=== PATIENT | female | born 1945 | race Caucasian/White ===

== ENCOUNTER → 2019-06-02 15:25 | Outpatient (CLI) | payer MEDICARE, OTHER, SELFPAY ==
--- NOTE | 2019-06-02 | DI.MG.S_ITS ---
BILATERAL DIGITAL SCREENING MAMMOGRAM 3D/2D WITH CAD: 06/02/2019 Comparison is made to exams dated: 05/07/2017 mammogram, 09/06/2014 mammogram, and 08/31/2012 mammogram - [facility]. The tissue of both breasts is heterogeneously dense. This may lower the sensitivity of mammography. Current study was also evaluated with a Computer Aided Detection (CAD) system. There are benign calcifications in both breasts. No significant masses, calcifications, or other findings are seen in either breast. There has been no significant interval change. IMPRESSION: There is no mammographic evidence of malignancy. A 1 year screening mammogram is recommended. This exam was interpreted at Station ID: [id number]. NOTE: For mammograms, a report in lay terms will be sent to the patient. Approximately 15% of breast malignancies will not be visualized mammographically. In the management of a palpable breast mass, a negative mammogram must not discourage biopsy of a clinically suspicious lesion. Electronically Signed By: Anson rivera/deshawn:06/02/2019 16:28:15 letter sent: Normal Exam ACR BI-RADS Category 2: Benign Finding(s) 3342F
== END ==
PROVIDERS: PCP Family Medicine; Visit Provider Family Medicine
DX: Z12.31 Encounter for screening mammogram for malignant neoplasm of breast (principal)
CPT/HCPCS: 77063; 77067

== ENCOUNTER → 2021-05-11 15:35 | Outpatient (CLI) | payer MEDICARE, OTHER, SELFPAY ==
--- NOTE | 2021-05-11 | DI.MG.S_ITS ---
BILATERAL DIGITAL SCREENING MAMMOGRAM 3D/2D WITH CAD: 05/11/2021 CLINICAL: Routine screening. Comparison is made to exams dated: 06/02/2019 mammogram, 05/07/2017 mammogram, 09/06/2014 mammogram, and 08/31/2012 mammogram - [facility]. The tissue of both breasts is heterogeneously dense. This may lower the sensitivity of mammography. Current study was also evaluated with a Computer Aided Detection (CAD) system. There are benign calcifications in both breasts. No significant masses, calcifications, or other findings are seen in either breast. There has been no significant interval change. IMPRESSION: BENIGN There is no mammographic evidence of malignancy. A 1 year screening mammogram is recommended. This exam was interpreted at Station ID: [id number]. NOTE: For mammograms, a report in lay terms will be sent to the patient. Approximately 15% of breast malignancies will not be visualized mammographically. In the management of a palpable breast mass, a negative mammogram must not discourage biopsy of a clinically suspicious lesion. Electronically Signed By: Paulie hollins/deshawn:05/13/2021 09:45:44 letter sent: Normal Exam ACR BI-RADS Category 2: Benign Finding(s) 3342F
== END ==
PROVIDERS: PCP Family Medicine; Referring Provider Family Medicine; Visit Provider Family Medicine
DX: Z12.31 Encounter for screening mammogram for malignant neoplasm of breast (principal)
CPT/HCPCS: 77063; 77067

== ENCOUNTER → 2023-02-02 | Outpatient (CLI) | payer MEDICARE, OTHER, SELFPAY ==
--- NOTE | 2023-02-02 | DI.RAD.S_ITS ---
Bone Density Report Name: LISA MCKEON Age: 77 Sex: Female Ethnicity: White Date of : 1945 Indication: postmenopausal; screening for osteoporosis; Referring Provider: RAVI GARRIDO Study: Bone densitometry was performed. Exam Date: February 02, 2023 Accession number: [id number] Bone Density: Region BMD T-score Z-score Classification AP Spine(L2, L3, L4) 1.139 0.5 3.2 Normal Femoral Neck (Left) 0.775 -0.7 1.5 Normal Total Hip (Left) 0.917 -0.2 1.7 Normal Femoral Neck (Right) 0.759 -0.8 1.4 Normal Total Hip (Right) 0.882 -0.5 1.4 Normal Total Hip Mean 0.899 -0.4 1.6 Normal World Health Organization criteria for BMD impression classify patients as: Normal (T-score at or above -1.0), Osteopenia (T-score between -1.0 and -2.5), or Osteoporosis (T-score at or below -2.5). 10-year Fracture Risk: FRAX not reported because: All T-scores for Spine Total, Hip Total, Femoral Neck at or above -1.0 Impression: The patient has normal bone mass. Discussion: BONE DENSITY IS ABOVE THE MINIMUM DESIRABLE LEVEL AT ALL SKELETAL SITES TESTED. This patient's bone mineral density is above the minimum desirable level (T-score -1.0 or better) at all sites measured. The patient should follow a healthful lifestyle (good nutrition with adequate calcium and vitamin D, and appropriate weight-bearing exercise). Follow-Up: Consider repeating this study in 5 years or sooner if there is some new clinical indication. Reported by: FERNANDO DIEGO M.D. on 02/02/2023 12:06:00 PM.
== END ==
PROVIDERS: PCP Family Medicine; Referring Provider Family Medicine; Visit Provider Family Medicine
DX: Z78.0 Asymptomatic menopausal state (principal); Z13.820 Encounter for screening for osteoporosis
CPT/HCPCS: 77080

== ENCOUNTER → 2023-02-11 09:42 | Outpatient (CLI) | payer MEDICARE, OTHER, SELFPAY ==
--- NOTE | 2023-02-13 02:15 | DI.NM.S_ITS ---
DATE OF SERVICE: 02/11/2023 PROCEDURE PERFORMED: Exercise treadmill stress and rest myocardial perfusion imaging with gating to assess ejection fraction and regional wall motion. ORDERING PROVIDER: Conner Whitaker MD. INDICATIONS: The patient is a 77-year-old female with atypical chest pain. CARDIAC STRESS: The patient was able to exercise for 5 minutes 12 seconds on a standard Latrell protocol suggesting average exercise capacity with an DAVIDE of -2%, achieving 5.3 METs. She had a normal heart rate and blood pressure response to exercise, achieving a maximum heart rate of 149 BPM (104% of her predicted maximum). She had no chest discomfort or other anginal symptoms. Her resting ECG is normal and there are no significant ST-segment shifts with stress. There were no arrhythmias. At 3 minutes, 20 seconds of exercise at a heart rate of 137 BPM, 25.1 millicuries of technetium-99m Myoview was injected and she was imaged 20 minutes later using a gated SPECT acquisition protocol. The day prior, she had been injected with 25.5 millicuries of technetium-99m Myoview and was imaged 15 minutes later, again using a gated SPECT acquisition protocol. FINDINGS: 1. Raw data: There is fair myocardial tracer uptake although with some subdiaphragmatic tracer activity noted on both the stress and the resting images, more so on the latter, which does complicate the interpretation. The lung/heart ratio is normal at 0.19 with a normal TID ratio of 0.91. 2. Quantitated gated SPECT: Post-stress ejection fraction is estimated at 74% without any focal wall motion abnormality; specifically, the inferior wall has normal contractility. The resting ejection fraction is also 74% with a normal resting end-diastolic volume of 86 mL. The right ventricular free wall appears to have mildly increased tracer uptake and appears mildly enlarged which can be a sign of early right ventricular overload condition but clinical correlation is needed. 3. Myocardial perfusion imaging: Post-stress supine images shows a fairly normal myocardial perfusion pattern although with a slight defect in the proximal to mid inferior wall in a pattern consistent with diaphragmatic attenuation, supported by its complete resolution on the prone images, revealing a normal, homogeneous perfusion pattern. The resting images are somewhat compromised by the subdiaphragmatic tracer activity but appears unchanged from the post-stress supine images without any improvement in the inferior defect. IMPRESSION: 1. Probable normal myocardial perfusion study for ischemia. 2. Mild, fixed inferior perfusion defect that most likely reflects diaphragmatic attenuation given its resolution on the prone images. There is no evidence for any myocardial ischemia. 3. Normal left ventricular size and function without any focal wall motion abnormality. The right ventricular free wall appears to have increased tracer uptake and appears mildly enlarged, which can be a sign of a right ventricular overload condition but clinical correlation is recommended. 4. Average exercise capacity without angina or ECG evidence of ischemia. There were no arrhythmias. Fady Nevarez - YUNIOR/jules/bk doc#: [id number]/job#: [id number] dd: 02/12/2023 17:18:00 dt: 02/13/2023 02:08:00 DICTATING /COPIES TO: Conner Pabon MD COPIES MNE: URMILA;
== END ==
PROVIDERS: PCP Family Medicine; Referring Provider Family Medicine; Visit Provider Family Medicine
DX: R07.89 Other chest pain (principal)
CPT/HCPCS: 78452; 93017; A9502

== ENCOUNTER → 2023-06-18 15:31 | Outpatient (CLI) | payer MEDICARE, OTHER, SELFPAY ==
--- NOTE | 2023-06-18 15:33 | DI.MG.S_ITS ---
BILATERAL DIGITAL SCREENING MAMMOGRAM 3D/2D WITH CAD: 06/18/2023 CLINICAL: Routine screening. Comparison is made to exams dated: 05/11/2021 mammogram, 06/02/2019 mammogram, and 05/07/2017 mammogram - [facility]. Both breasts are heterogeneously dense, which may obscure small masses (category c / 51-75% glandular tissue). Current study was also evaluated with a Computer Aided Detection (CAD) system. There are benign calcifications in both breasts. No significant masses, calcifications, or other findings are seen in either breast. There has been no significant interval change. IMPRESSION: BENIGN There is no mammographic evidence of malignancy. A 1 year screening mammogram is recommended. Based on the Tyrer Cuzick model (a risk assessment model) the patient's lifetime risk is 3.5% and her 10 year risk is 0.0%. According to the ACR, ACS, and NCCN guidelines, an annual breast MRI exam along with mammogram is recommended if the patient's lifetime risk is 20% or greater. This exam was interpreted at Station ID: [id number]. NOTE: For mammograms, a report in lay terms will be sent to the patient. Approximately 15% of breast malignancies will not be visualized mammographically. In the management of a palpable breast mass, a negative mammogram must not discourage biopsy of a clinically suspicious lesion. Electronically Signed By: Ilir vidal/deshawn:06/19/2023 08:53:33 letter sent: Normal Exam ACR BI-RADS Category 2: Benign Finding(s) 3342F
== END ==
PROVIDERS: PCP Family Medicine; Referring Provider Family Medicine; Visit Provider Family Medicine
DX: Z12.31 Encounter for screening mammogram for malignant neoplasm of breast (principal)
CPT/HCPCS: 77063; 77067

== ENCOUNTER → 2025-03-16 07:29 | Outpatient (CLI) | payer MEDICARE, BC, SELFPAY ==
--- NOTE | 2025-03-16 | DI.RAD.S_ITS ---
PROCEDURE: XR KNEE RT 1TO2V INDICATIONS: PAIN TECHNIQUE: 2 views of the knee were acquired. COMPARISON: [facility], , XR KNEE STANDING BI, 03/16/2025, 7:54. FINDINGS: Bones: Lateral and patellar sunrise views are viewed in conjunction with and AP standing view. No fractures or dislocations. No suspicious bony lesions. Medial compartment predominant degenerative change with prominent osteophytes and moderately severe medial compartment joint space loss. Soft tissues: Moderate joint effusion. No suspicious soft tissue calcifications. IMPRESSION: Degenerative arthritis predominantly involving the medial compartment. Moderate knee joint effusion. Dictated by: Raji Bautista M.D. on 03/16/2025 at 9:46 Approved by: Raji Bautista M.D. on 03/16/2025 at 9:47
--- NOTE | 2025-03-16 07:32 | DI.US.S_ITS ---
PROCEDURE: US ABDOMEN LIMITED INDICATIONS: ELEVATED ALK PHOS TECHNIQUE: Real-time scanning was performed of the abdominal and retroperitoneal organs, with image documentation. COMPARISON: None. FINDINGS: Liver: Liver is normal in size and mildly increased in echotexture. Gallbladder: No gallstones. No wall thickening. No pericholecystic edema. Negative sonographic Cruz's sign. Biliary ducts: Intrahepatic bile ducts are non-dilated. Extrahepatic bile duct caliber measures 3.2 mm. Normal is 6-7 mm or less in diameter, or 10 mm or less post-cholecystectomy. Pancreas: Visualized portions of the pancreas are sonographically normal. Miscellaneous: No free abdominal fluid. IMPRESSION: 1. No gallstone disease. 2. Suggestion of mild diffuse hepatic steatosis. Dictated by: Raji Bautista M.D. on 03/16/2025 at 10:41 Approved by: Raji Bautista M.D. on 03/16/2025 at 10:42
--- NOTE | 2025-03-16 07:33 | DI.RAD.S_ITS ---
PROCEDURE: XR KNEE STANDING BI INDICATIONS: RIGHT KNEE PAIN TECHNIQUE: 1 views of the knee(s) COMPARISON: [facility], CR, XR KNEE RT 1TO2V, 03/16/2025, 7:54. FINDINGS: Bones: The AP standing view is evaluated in conjunction with a lateral view and a sunrise patellar view that were obtained at the same time. No acute fractures or dislocations. Patellar alignment is normal on the sunrise view. No suspicious bony lesions. Predominantly medial compartment degenerative change with prominent osteophytes and moderately severe medial compartment joint space loss. The contralateral left knee demonstrates medial compartment osteophyte and moderate joint space loss. Soft tissues: No knee joint effusions. No suspicious soft tissue calcification. IMPRESSION: Medial compartment predominant degenerative arthritis of the right knee with prominent medial compartment osteophytes and moderately severe joint space loss. Dictated by: Raji Bautista M.D. on 03/16/2025 at 9:44 Approved by: Raji Bautista M.D. on 03/16/2025 at 9:45
== END ==
PROVIDERS: PCP Family Medicine; Referring Provider Family Medicine; Visit Provider Family Medicine
DX: R74.8 Abnormal levels of other serum enzymes (principal); M25.561 Pain in right knee; G89.29 Other chronic pain
CPT/HCPCS: 73560; 73565; 76705

== ENCOUNTER → 2025-04-04 15:11 | Outpatient (CLI) | payer MEDICARE, BC, SELFPAY ==
--- NOTE | 2025-04-04 | DI.US.S_ITS ---
PROCEDURE: US PERIPH VENOUS LOW EXTREM RT INDICATIONS: LEG PAIN TECHNIQUE: Real-time imaging, as well as color and pulse Doppler interrogation, were performed of the lower extremity deep veins from the inguinal ligament to the popliteal fossa, with documentation of the visualized calf veins. COMPARISON: None. FINDINGS: The common femoral, femoral, popliteal, and the visualized calf veins are normally compressible, and free of intraluminal thrombus. Color and pulse Doppler demonstrate normal phasic intraluminal flow. There is normal augmentation response to distal compression maneuver. Right popliteal fossa collection measuring 18.8 x 5 x 1.6 cm. IMPRESSION: No findings of lower extremity deep venous thrombosis. Dictated by: Paulie Barnett M.D. on 04/04/2025 at 17:40 Approved by: Paulie Barnett M.D. on 04/04/2025 at 17:41
== END ==
PROVIDERS: Family Provider Family Medicine; PCP Family Medicine; Referring Provider Family Medicine; Visit Provider Family Medicine
DX: M79.661 Pain in right lower leg (principal)
CPT/HCPCS: 93971

== ENCOUNTER 2025-04-14 12:15 | Outpatient (RCR) | payer MEDICARE, BC, SELFPAY ==
--- NOTE | 2025-03-24 16:22 | PT.OIE ---
Current Diagnoses Other chronic pain (03/24/25) Pain in right knee (03/24/25) Pain in left knee (03/24/25) Stiffness of right knee, not elsewhere classified (03/24/25) Stiffness of left knee, not elsewhere classified (03/24/25) Visit Care Team Role Provider Type Conner Whitaker MD Attending Provider Physician Family Provider Primary Care Provider Referring Provider Specialty: Family Practice Address: [address] [place] [address], [facility] [place], [facility] Email: [email or web address] Physical Therapy Initial Evaluation PT-OP-A Visit Information Start: 03/24/25 11:45 Freq: Status: Active Protocol: Document 03/24/25 09:00 DCW (Rec: 03/24/25 11:57 DCW [id number]) Out-Patient Physical Therapy Visit Information Visit Information Visit Type Initial Evaluation Visit Start Time 09:00 Visit Stop Time 09:45 Visit Number 1 Number of ARMAMENT INSTALLER Visits 0 Evaluation Information Evaluation Date 03/24/25 PT-OP-B Current Condition Start: 03/24/25 11:45 Freq: Status: Active Protocol: Document 03/24/25 09:00 DCW (Rec: 03/24/25 11:57 DCW [id number]) Current Condition History of Current Condition Onset Date Multi-year history Current Complaints Bilateral knee pain, soft- tissue tightness, knee stiffness History of Current Condition Pt is an 80 year old female presenting with a long- standing history of bilateral knee pain, right worse than left. Notes that it has slowly been worsening, however has gotten significantly worse over the past 4-5 weeks. Pt spends [facility] in [place], and while there, tried some aquatic arthritis classes and Pilates, both of which resulted in some significant knee swelling. Notes riding an upright exercise bike or walking into [employer] from the parking lot also results in swelling. Pt notes there is general soreness, but she feels it is more soft tissue than degenerative arthritic pain. Previously would walk 45 -60 minutes every day, [place] has not been able to go out for the past few weeks because of her knees. Has a history of a right meniscus scope years ago. Has an appointment with an ortho up in [place] 04/13, hoping to get injections. Pt is a retired RN and nursing school instructor/mary. Prior Treatments and Tests Bilateral knee x-ray: IMPRESSION: Medial compartment predominant degenerative arthritis of the right knee with prominent medial compartment osteophytes and moderately severe joint space loss. per Silviano Julio on 03/16/2025 PT-OP-C Subjective Start: 03/24/25 11:45 Freq: Status: Active Protocol: Document 03/24/25 09:00 DCW (Rec: 03/24/25 11:57 DCW [id number]) OP-PT Subjective Patient Comments Patient Comments I think there's a lot of soft tissue stuff going on in the right. Patient Questionnaires Lower Extremity Functional Scale LEFS Score 32/80 = 40% PT-OP-F Manual Assessment Start: 03/24/25 11:45 Freq: Status: Active Protocol: Document 03/24/25 09:00 DCW (Rec: 03/24/25 12:09 DCW [id number]) Manual Assessments Soft Tissue Assessment Soft Tissue Mobility Assessment Moderate tone with tenderness to palpation 3/4: wincing and withdraw in bilateral distal hamstrings and proximal gastroc, worse medially than laterally. Bilateral edema and joint effusion. Joint Mobility Assessment Joint Mobility Assessment Significant grinding with patella mobilization, R>L PT-OP-J Posture/Palpation/Skin Start: 03/24/25 11:45 Freq: Status: Active Protocol: Document 03/24/25 09:00 DCW (Rec: 03/24/25 12:09 DCW [id number]) Skin Assessment Circumference Measurement 10 cm inferior to joint line Location Right knee Measurement (Centimeters) 38.7 Comments Left knee = 38.5 cm 10 cm superior to joint line Location Right knee Measurement (Centimeters) 43.3 Comments Left knee = 42.7 cm Knee joint line Location Right knee Measurement (Centimeters) 41.9 Comments Left knee = 42.4 cm PT-OP-K Range of Motion Start: 03/24/25 11:45 Freq: Status: Active Protocol: Document 03/24/25 09:00 DCW (Rec: 03/24/25 12:09 DCW [id number]) Knee Goniometric Range of Motion Knee Right Patient Position Supine Flexion Active (degrees) 10 Extension Active (degrees) 113 Left Patient Position Supine Flexion Active (degrees) 120 Extension Active (degrees) 4 PT-OP-L Special Tests Start: 03/24/25 11:45 Freq: Status: Active Protocol: Document 03/24/25 09:00 DCW (Rec: 03/24/25 12:09 DCW [id number]) Special Tests Knee Special Tests Varus- 25 Degrees Test Results Negative Valgus- 25 Degrees Test Results Negative Posterior Draw Test Results Negative Patellar Grind Test Test Results Positive bilaterally Patella Tap Test Results Positive bilaterally Anterior Draw Test Results Negative PT-OP-M Strength Start: 03/24/25 11:45 Freq: Status: Active Protocol: Document 03/24/25 09:00 DCW (Rec: 03/24/25 12:10 DCW [id number]) Knee Strength Knee Manual Muscle Testing Right Flexion (S2) 4- Good- Extension (L3) 4 Good Left Flexion (S2) 4- Good- Extension (L3) 4 Good PT-OP-T Assessment and Plan Start: 03/24/25 11:45 Freq: Status: Active Protocol: Document 03/24/25 09:00 DCW (Rec: 03/24/25 16:22 DCW [id number]) Physical Therapy Assessment Rehab Potential Rehabilitation Potential Good Evaluation Complexity Number of Personal Factors/Comorbidities 3 or More Clinical Presentation at Evaluation Unstable Impairments Impairments Activity Tolerance,Edema, Functional Activities, Functional Mobility,Gait,Pain, ROM,Soft Tissue Mobility, Strength,Tone Goals Two Impairment Pt unable to ambulate more than five minutes without bilateral knee edema Vest Tailor Goal (LTG) Pt to report ability to ambulate >30 minutes without complaints of increased pain or edema LTG Duration 05/25/25 One Impairment Pt does not have an appropriate home exercise program Short Term Goal (STG) Pt to be independent and compliant with an appropriate HEP STG Duration 04/24/25 Assessment Summary Assessment Pt presents with signs and symptoms consistent with referring diagnosis. Pt displays significant knee edema bilaterally, as well as R>L ROM limitations, weakness, and limitations on gait distance. Pt appears to have crepitus bilaterally with patellar movement. Also exhibits increased tone and tenderness in hamstrings and calf. Discussed continuing hamstring and calf stretching, which pt used to do but has recently stopped. Also discussed potential of using compression stockings to help limit swelling. Pt reports pain is present, but feels the edema is the thing that bothers her the most. Will likely benefit from skilled therapy focusing on STM, stretching, knee ROM, strengthening, increased functional mobility, and increased activity tolerance. Physical Therapy Plan Frequency and Duration Frequency of Treatment 2x/Week Plan of Care Start Date 03/24/25 Plan of Care End Date 05/25/25 Therapeutic Interventions Therapeutic Interventions Gait Training,Home Exercise Program,Joint Mobilizations, Manual Therapy,Neuromuscular Re-education,Patient/Caregiver Education,Self-Care/Home Management,Soft Tissue Mobilization,Taping, Therapeutic Activities, Therapeutic Exercises Modalities Cold Pack/Ice Massage,Electric Stimulation,Hot Packs, Ultrasound Next Visit Focus/Plan Next Note Type Treatment Note Next Visit Plan STM, gentle strengthening, edema control
--- NOTE | 2025-03-24 16:22 | PT.OPPOC ---
Physical, Occupational & Speech Therapy At [facility] Current Diagnoses Other chronic pain (03/24/25) Pain in right knee (03/24/25) Pain in left knee (03/24/25) Stiffness of right knee, not elsewhere classified (03/24/25) Stiffness of left knee, not elsewhere classified (03/24/25) Visit Care Team Role Provider Type Conner Whitaker MD Attending Provider Physician Family Provider Primary Care Provider Referring Provider Specialty: Family Practice Address: [address] [place] [address], [facility] Email: [email or web address] Plan Of Care PT-OP-B Current Condition Start: 03/24/25 11:45 Freq: Status: Active Protocol: Document 03/24/25 09:00 DCW (Rec: 03/24/25 11:57 DCW [id number]) Current Condition History of Current Condition Onset Date Multi-year history Current Complaints Bilateral knee pain, soft- tissue tightness, knee stiffness History of Current Condition Pt is an 80 year old female presenting with a long- standing history of bilateral knee pain, right worse than left. Notes that it has slowly been worsening, however has gotten significantly worse over the past 4-5 weeks. Pt spends [facility] in [place], and while there, tried some aquatic arthritis classes and Pilates, both of which resulted in some significant knee swelling. Notes riding an upright exercise bike or walking into [employer] from the parking lot also results in swelling. Pt notes there is general soreness, but she feels it is more soft tissue than degenerative arthritic pain. Previously would walk 45 -60 minutes every day, [place] however has not been able to go out for the past few weeks because of her knees. Has a history of a right meniscus scope years ago. Has an appointment with an ortho up in [place] 04/13, hoping to get injections. Pt is a retired RN and nursing school instructor/mary. Prior Treatments and Tests Bilateral knee x-ray: IMPRESSION: Medial compartment predominant degenerative arthritis of the right knee with prominent medial compartment osteophytes and moderately severe joint space loss. per Silviano Julio. on 03/16/2025 PT-OP-T Assessment and Plan Start: 03/24/25 11:45 Freq: Status: Active Protocol: Document 03/24/25 09:00 [facility] (Rec: 03/24/25 16:22 [facility] [id number]) Physical Therapy Assessment Rehab Potential Rehabilitation Potential Good Evaluation Complexity Number of Personal Factors/Comorbidities 3 or More Clinical Presentation at Evaluation Unstable Impairments Impairments Activity Tolerance,Edema, Functional Activities, Functional Mobility,Gait,Pain, ROM,Soft Tissue Mobility, Strength,Tone Goals Two Impairment Pt unable to ambulate more than five minutes without bilateral knee edema Chcf Goal (LTG) Pt to report ability to ambulate >30 minutes without complaints of increased pain or edema LTG Duration 05/25/25 One Impairment Pt does not have an appropriate home exercise program Short Term Goal (STG) Pt to be independent and compliant with an appropriate HEP STG Duration 04/24/25 Assessment Summary Assessment Pt presents with signs and symptoms consistent with referring diagnosis. Pt displays significant knee edema bilaterally, as well as R>L ROM limitations, weakness, and limitations on gait distance. Pt appears to have crepitus bilaterally with patellar movement. Also exhibits increased tone and tenderness in hamstrings and calf. Discussed continuing hamstring and calf stretching, which pt used to do but has recently stopped. Also discussed potential of using compression stockings to help limit swelling. Pt reports pain is present, but feels the edema is the thing that bothers her the most. Will likely benefit from skilled therapy focusing on STM, stretching, knee ROM, strengthening, increased functional mobility, and increased activity tolerance. Physical Therapy Plan Frequency and Duration Frequency of Treatment 2x/Week Plan of Care Start Date 03/24/25 Plan of Care End Date 05/25/25 Therapeutic Interventions Therapeutic Interventions Gait Training,Home Exercise Program,Joint Mobilizations, Manual Therapy,Neuromuscular Re-education,Patient/Caregiver Education,Self-Care/Home Management,Soft Tissue Mobilization,Taping, Therapeutic Activities, Therapeutic Exercises Modalities Cold Pack/Ice Massage,Electric Stimulation,Hot Packs, Ultrasound Next Visit Focus/Plan Next Note Type Treatment Note Next Visit Plan STM, gentle strengthening, edema control Plan of Care Dates Plan of Care Start Date 03/24/25 Plan of Care End Date 05/25/25 Electronically Signed by: Roscoe Morrison, PT 03/24/25 4500 If you are in agreement with this Plan of Care, please return a signed and dated copy. I have reviewed this Plan of Care and certify that the skilled therapy services above are required to meet the patient?s needs. Physician Signature Date Printed Name and Credentials Clinical Instructor Signature Printed Name and Credentials
--- NOTE | 2025-03-31 13:00 | PT.OTN ---
Current Diagnoses Other chronic pain (03/31/25) Pain in right knee (03/31/25) Pain in left knee (03/31/25) Stiffness of right knee, not elsewhere classified (03/31/25) Stiffness of left knee, not elsewhere classified (03/31/25) Physical Therapy Treatment Note PT-OP-A Visit Information Start: 03/24/25 11:45 Freq: Status: Active Protocol: Document 03/31/25 12:48 MANAGER INTERNSHIP (Rec: 03/31/25 13:00 MANAGER INTERNSHIP Laptop) Out-Patient Physical Therapy Visit Information Visit Information Visit Type Treatment Note Visit Start Time 08:15 Visit Stop Time 09:00 Visit Number 2 Number of WIRE DRAWER Visits 0 PT-OP-B Current Condition Start: 03/24/25 11:45 Freq: Status: Active Protocol: Document 03/24/25 09:00 DCW (Rec: 03/24/25 11:57 DCW [id number]) Current Condition History of Current Condition Onset Date Multi-year history Current Complaints Bilateral knee pain, soft-tissue tightness, knee stiffness History of Current Pt is an 80 year old female presenting with a long- Condition standing history of bilateral knee pain, right worse than left. Notes that it has slowly been worsening, however has gotten significantly worse over the past 4- 5 weeks. Pt spends [facility] in [place], and while there , tried some aquatic arthritis classes and Pilates, both of which resulted in some significant knee swelling. Notes riding an upright exercise bike or walking into [employer] from the parking lot also results in swelling. Pt notes there is general soreness, but she feels it is more soft tissue than degenerative arthritic pain. Previously would walk 45-60 minutes every day, [place] has not been able to go out for the past few weeks because of her knees. Has a history of a right meniscus scope years ago. Has an appointment with an ortho up in [place] 04/13, hoping to get injections. Pt is a retired RN and nursing school instructor/mary. Prior Treatments and Bilateral knee x-ray: IMPRESSION: Medial compartment Tests predominant degenerative arthritis of the right knee with prominent medial compartment osteophytes and moderately severe joint space loss. per Raji Bautista M.D. on 03/16/2025 PT-OP-C Subjective Start: 03/24/25 11:45 Freq: Status: Active Protocol: Document 03/31/25 12:48 MANAGER INTERNSHIP (Rec: 03/31/25 13:00 MANAGER INTERNSHIP Laptop) OP-PT Subjective Patient Comments Patient Comments Pt reports increased pain and limps into session d/t pain with WB into RLE, reporting feeling tightness to ant quad. PT-OP-F Manual Assessment Start: 03/24/25 11:45 Freq: Status: Active Protocol: Document 03/24/25 09:00 DCW (Rec: 03/24/25 12:09 DCW [id number]) Manual Assessments Soft Tissue Assessment Soft Tissue Mobility Moderate tone with tenderness to palpation 3/4: wincing Assessment and withdraw in bilateral distal hamstrings and proximal gastroc, worse medially than laterally. Bilateral edema and joint effusion. Joint Mobility Assessment Joint Mobility Significant grinding with patella mobilization, R>L Assessment PT-OP-J Posture/Palpation/Skin Start: 03/24/25 11:45 Freq: Status: Active Protocol: Document 03/24/25 09:00 DCW (Rec: 03/24/25 12:09 DCW [id number]) Skin Assessment Circumference Measurement 10 cm inferior to joint line Location Right knee Measurement ( 38.7 Centimeters) Comments Left knee = 38.5 cm 10 cm superior to joint line Location Right knee Measurement ( 43.3 Centimeters) Comments Left knee = 42.7 cm Knee joint line Location Right knee Measurement ( 41.9 Centimeters) Comments Left knee = 42.4 cm PT-OP-K Range of Motion Start: 03/24/25 11:45 Freq: Status: Active Protocol: Document 03/24/25 09:00 DCW (Rec: 03/24/25 12:09 DCW [id number]) Knee Goniometric Range of Motion Knee Right Patient Position Supine Flexion Active ( 10 degrees) Extension Active ( 113 degrees) Left Patient Position Supine Flexion Active ( 120 degrees) Extension Active ( 4 degrees) PT-OP-L Special Tests Start: 03/24/25 11:45 Freq: Status: Active Protocol: Document 03/24/25 09:00 DCW (Rec: 03/24/25 12:09 DCW [id number]) Special Tests Knee Special Tests Varus- 25 Degrees Test Results Negative Valgus- 25 Degrees Test Results Negative Posterior Draw Test Results Negative Patellar Grind Test Test Results Positive bilaterally Patella Tap Test Results Positive bilaterally Anterior Draw Test Results Negative PT-OP-M Strength Start: 03/24/25 11:45 Freq: Status: Active Protocol: Document 03/24/25 09:00 DCW (Rec: 03/24/25 12:10 DCW [id number]) Knee Strength Knee Manual Muscle Testing Right Flexion (S2) 4- Good- Extension (L3) 4 Good Left Flexion (S2) 4- Good- Extension (L3) 4 Good PT-OP-Q Treatments Start: 03/24/25 11:45 Freq: Status: Active Protocol: Document 03/31/25 12:48 MANAGER INTERNSHIP (Rec: 03/31/25 13:00 MANAGER INTERNSHIP Laptop) Cardio Equipment Recumbent Elliptical (SeatGeek) Duration (Minutes) 7 Resistance L3 Other NuStep for warm up/ROM Therapeutic Exercises Supine Exercises Bridges Side bilateral Reps/Minutes 10s hold x10 Comments for active quad stretch Sidelying Exercises Clamshells Side bilateral Resistance gravity Reps/Minutes 10x2 Comments TC to prevent hip roll back Manual Therapy Treatment Consent Patient gave verbal Yes consent for manual treatment Soft Tissue Mobilization quad Body Location R quad, ant tib, gastroc Mobilization Type Myofascial Release,Rolling Intensity/Depth Moderate Body Position supine RLE elevated Comments large trigger point to distal quad with extra focus, distal to proximal to promote lymph drainage PT-OP-T Assessment and Plan Start: 03/24/25 11:45 Freq: Status: Active Protocol: Document 03/31/25 12:48 MANAGER INTERNSHIP (Rec: 03/31/25 13:00 MANAGER INTERNSHIP Laptop) Physical Therapy Assessment Goals Two Impairment Pt unable to ambulate more than five minutes without bilateral knee edema Mcc Goal (LTG) Pt to report ability to ambulate >30 minutes without complaints of increased pain or edema LTG Duration 05/25/25 One Impairment Pt does not have an appropriate home exercise program Short Term Goal (STG Pt to be independent and compliant with an appropriate ) HEP STG Duration 04/24/25 Assessment Summary Assessment Focus this session on STM for soft tissue mobility and edema control d/t reports of increased pain to R knee. Pt tolerated well and reports pain reduction from 4/10 at start of session to 2/10 at end of session. Physical Therapy Plan Frequency and Duration Frequency of 2x/Week Treatment Plan of Care Start 03/24/25 Date Plan of Care End 05/25/25 Date Therapeutic Interventions Therapeutic Gait Training,Home Exercise Program,Joint Mobilizations Interventions ,Manual Therapy,Neuromuscular Re-education,Patient/ Caregiver Education,Self-Care/Home Management,Soft Tissue Mobilization,Taping,Therapeutic Activities, Therapeutic Exercises Modalities Cold Pack/Ice Massage,Electric Stimulation,Hot Packs, Ultrasound Next Visit Focus/Plan Next Note Type Treatment Note Next Visit Plan STM to ant quad with elevation for decreased edema, supine and sidelying hip strengthening, active gastroc/ HS stretching
--- NOTE | 2025-04-07 14:46 | PT.OTN ---
Current Diagnoses Other chronic pain (04/07/25) Pain in right knee (04/07/25) Pain in left knee (04/07/25) Stiffness of right knee, not elsewhere classified (04/07/25) Stiffness of left knee, not elsewhere classified (04/07/25) Physical Therapy Treatment Note PT-OP-A Visit Information Start: 03/24/25 11:45 Freq: Status: Active Protocol: Document 04/07/25 13:56 MAINTENANCE APPRENTICE (Rec: 04/07/25 14:32 MAINTENANCE APPRENTICE Laptop) Out-Patient Physical Therapy Visit Information Visit Information Visit Type Treatment Note Visit Start Time 13:48 Visit Stop Time 14:30 Visit Number 3 Number of LAND CONSERVATION SPECIALIST Visits 0 PT-OP-B Current Condition Start: 03/24/25 11:45 Freq: Status: Active Protocol: Document 03/24/25 09:00 DCW (Rec: 03/24/25 11:57 DCW [id number]) Current Condition History of Current Condition Onset Date Multi-year history Current Complaints Bilateral knee pain, soft-tissue tightness, knee stiffness History of Current Pt is an 80 year old female presenting with a long- Condition standing history of bilateral knee pain, right worse than left. Notes that it has slowly been worsening, however has gotten significantly worse over the past 4- 5 weeks. Pt spends [facility] in [place], and while there , tried some aquatic arthritis classes and Pilates, both of which resulted in some significant knee swelling. Notes riding an upright exercise bike or walking into [employer] from the parking lot also results in swelling. Pt notes there is general soreness, but she feels it is more soft tissue than degenerative arthritic pain. Previously would walk 45-60 minutes every day, [place], however has not been able to go out for the past few weeks because of her knees. Has a history of a right meniscus scope years ago. Has an appointment with an ortho up in [place] 04/13, hoping to get injections. Pt is a retired RN and nursing school instructor/mary. Prior Treatments and Bilateral knee x-ray: IMPRESSION: Medial compartment Tests predominant degenerative arthritis of the right knee with prominent medial compartment osteophytes and moderately severe joint space loss. per Raji Bautista M.D. on 03/16/2025 PT-OP-C Subjective Start: 03/24/25 11:45 Freq: Status: Active Protocol: Document 04/07/25 13:56 MAINTENANCE APPRENTICE (Rec: 04/08/25 14:41 MAINTENANCE APPRENTICE Laptop) OP-PT Subjective Patient Comments Patient Comments Pt reports she cancelled last PT session d/t increased swelling in RLE and pain to calf, went to doctor for rule out of DVT which was negative. Swelling has significantly improved but still remains and calf is still painful, currently at 2/10 pain in R calf. PT-OP-F Manual Assessment Start: 03/24/25 11:45 Freq: Status: Active Protocol: Document 03/24/25 09:00 DCW (Rec: 03/24/25 12:09 DCW [id number]) Manual Assessments Soft Tissue Assessment Soft Tissue Mobility Moderate tone with tenderness to palpation 3/4: wincing Assessment and withdraw in bilateral distal hamstrings and proximal gastroc, worse medially than laterally. Bilateral edema and joint effusion. Joint Mobility Assessment Joint Mobility Significant grinding with patella mobilization, R>L Assessment PT-OP-J Posture/Palpation/Skin Start: 03/24/25 11:45 Freq: Status: Active Protocol: Document 03/24/25 09:00 DCW (Rec: 03/24/25 12:09 DCW [id number]) Skin Assessment Circumference Measurement 10 cm inferior to joint line Location Right knee Measurement ( 38.7 Centimeters) Comments Left knee = 38.5 cm 10 cm superior to joint line Location Right knee Measurement ( 43.3 Centimeters) Comments Left knee = 42.7 cm Knee joint line Location Right knee Measurement ( 41.9 Centimeters) Comments Left knee = 42.4 cm PT-OP-K Range of Motion Start: 03/24/25 11:45 Freq: Status: Active Protocol: Document 03/24/25 09:00 DCW (Rec: 03/24/25 12:09 DCW [id number]) Knee Goniometric Range of Motion Knee Right Patient Position Supine Flexion Active ( 10 degrees) Extension Active ( 113 degrees) Left Patient Position Supine Flexion Active ( 120 degrees) Extension Active ( 4 degrees) PT-OP-L Special Tests Start: 03/24/25 11:45 Freq: Status: Active Protocol: Document 03/24/25 09:00 DCW (Rec: 03/24/25 12:09 DCW [id number]) Special Tests Knee Special Tests Varus- 25 Degrees Test Results Negative Valgus- 25 Degrees Test Results Negative Posterior Draw Test Results Negative Patellar Grind Test Test Results Positive bilaterally Patella Tap Test Results Positive bilaterally Anterior Draw Test Results Negative PT-OP-M Strength Start: 03/24/25 11:45 Freq: Status: Active Protocol: Document 03/24/25 09:00 DCW (Rec: 03/24/25 12:10 DCW [id number]) Knee Strength Knee Manual Muscle Testing Right Flexion (S2) 4- Good- Extension (L3) 4 Good Left Flexion (S2) 4- Good- Extension (L3) 4 Good PT-OP-Q Treatments Start: 03/24/25 11:45 Freq: Status: Active Protocol: Document 04/07/25 13:56 MAINTENANCE APPRENTICE (Rec: 04/08/25 14:41 MAINTENANCE APPRENTICE Laptop) Therapeutic Exercises Supine Exercises Stretch Supine Exercise Name HF off end of mat table Side bilateral Reps/Minutes 60s x2 each Prone Exercises HS curls Side right Reps/Minutes 10x2 Sidelying Exercises Hip Abd Sidelying Exercise 1. SLR 2. with hip ER Name Side bilateral Reps/Minutes 10x2 each exercise Comments Mod TC at hip to prevent roll back Clamshells Side bilateral Reps/Minutes x10 Manual Therapy Treatment Consent Patient gave verbal Yes consent for manual treatment Soft Tissue Mobilization Gastroc Body Location R gastroc and distal HS Mobilization Type Instrument Assisted,Myofascial Release,Rolling Intensity/Depth Moderate Body Position Prone Comments decreased tissue mobility but no big trigger points, lateral and medial gastroc tighter than mid PT-OP-T Assessment and Plan Start: 03/24/25 11:45 Freq: Status: Active Protocol: Document 04/07/25 13:56 MAINTENANCE APPRENTICE (Rec: 04/07/25 14:32 MAINTENANCE APPRENTICE Laptop) Physical Therapy Assessment Goals Two Impairment Pt unable to ambulate more than five minutes without bilateral knee edema Half-Way Goal (LTG) Pt to report ability to ambulate >30 minutes without complaints of increased pain or edema LTG Duration 05/25/25 One Impairment Pt does not have an appropriate home exercise program Short Term Goal (STG Pt to be independent and compliant with an appropriate ) HEP STG Duration 04/24/25 Assessment Summary Assessment Pt limited by pain and decreased tissue mobility to R gastroc and distal HS, but is progressing with B hip strengthening. Recommended to her laying on floor or bed with BLEs extended up on wall for elevation and wall slides to help reduce edema. Physical Therapy Plan Frequency and Duration Frequency of 2x/Week Treatment Plan of Care Start 03/24/25 Date Plan of Care End 05/25/25 Date Therapeutic Interventions Therapeutic Gait Training,Home Exercise Program,Joint Mobilizations Interventions ,Manual Therapy,Neuromuscular Re-education,Patient/ Caregiver Education,Self-Care/Home Management,Soft Tissue Mobilization,Taping,Therapeutic Activities, Therapeutic Exercises Modalities Cold Pack/Ice Massage,Electric Stimulation,Hot Packs, Ultrasound Next Visit Focus/Plan Next Note Type Treatment Note Next Visit Plan mini squats with TC, shuttle recovery, STM to R quad/HS /gastroc while in elevation as needed for improved tissue mobility and edema control.
--- NOTE | 2025-04-12 17:23 | PT.OTN ---
Addendum entered and electronically signed by Roscoe Morrison PT 04/12/25 17:46: PT direct supervision and direction to student PT Warner Chung throughout session. STM performed by Roscoe Morrison PT, DPT Original Note: Current Diagnoses Other chronic pain (04/12/25) Pain in right knee (04/12/25) Pain in left knee (04/12/25) Stiffness of right knee, not elsewhere classified (04/12/25) Stiffness of left knee, not elsewhere classified (04/12/25) Physical Therapy Treatment Note PT-OP-A Visit Information Start: 03/24/25 11:45 Freq: Status: Active Protocol: Document 04/12/25 12:16 LFG (Rec: 04/12/25 15:18 LFG [id number]) Out-Patient Physical Therapy Visit Information Visit Information Visit Type Treatment Note Visit Start Time 12:16 Visit Stop Time 01:03 Visit Number 4 Number of BURIAL AGENT Visits 0 PT-OP-B Current Condition Start: 03/24/25 11:45 Freq: Status: Active Protocol: Document 03/24/25 09:00 DCW (Rec: 03/24/25 11:57 DCW [id number]) Current Condition History of Current Condition Onset Date Multi-year history Current Complaints Bilateral knee pain, soft-tissue tightness, knee stiffness History of Current Pt is an 80 year old female presenting with a long- Condition standing history of bilateral knee pain, right worse than left. Notes that it has slowly been worsening, however has gotten significantly worse over the past 4- 5 weeks. Pt spends [facility] in [place], and while there , tried some aquatic arthritis classes and Pilates, both of which resulted in some significant knee swelling. Notes riding an upright exercise bike or walking into [employer] from the parking lot also results in swelling. Pt notes there is general soreness, but she feels it is more soft tissue than degenerative arthritic pain. Previously would walk 45-60 minutes every day, [place] has not been able to go out for the past few weeks because of her knees. Has a history of a right meniscus scope years ago. Has an appointment with an ortho up in [place] 04/13, hoping to get injections. Pt is a retired RN and nursing school instructor/mary. Prior Treatments and Bilateral knee x-ray: IMPRESSION: Medial compartment Tests predominant degenerative arthritis of the right knee with prominent medial compartment osteophytes and moderately severe joint space loss. per Raji Bautista M.D. on 03/16/2025 PT-OP-C Subjective Start: 03/24/25 11:45 Freq: Status: Active Protocol: Document 04/12/25 12:16 LFG (Rec: 04/12/25 15:18 LFG [id number]) OP-PT Subjective Patient Comments Patient Comments Pt reports of swelling in the knees, more so in the back of the R knee. Walking up/down a lot of stairs for grandsons commencements causing some tightness in her calfs. Has an Ortho appt tomorrow. Doing HEP almost daily. PT-OP-F Manual Assessment Start: 03/24/25 11:45 Freq: Status: Active Protocol: Document 03/24/25 09:00 DCW (Rec: 03/24/25 12:09 DCW [id number]) Manual Assessments Soft Tissue Assessment Soft Tissue Mobility Moderate tone with tenderness to palpation 3/4: wincing Assessment and withdraw in bilateral distal hamstrings and proximal gastroc, worse medially than laterally. Bilateral edema and joint effusion. Joint Mobility Assessment Joint Mobility Significant grinding with patella mobilization, R>L Assessment PT-OP-J Posture/Palpation/Skin Start: 03/24/25 11:45 Freq: Status: Active Protocol: Document 03/24/25 09:00 DCW (Rec: 03/24/25 12:09 DCW [id number]) Skin Assessment Circumference Measurement 10 cm inferior to joint line Location Right knee Measurement ( 38.7 Centimeters) Comments Left knee = 38.5 cm 10 cm superior to joint line Location Right knee Measurement ( 43.3 Centimeters) Comments Left knee = 42.7 cm Knee joint line Location Right knee Measurement ( 41.9 Centimeters) Comments Left knee = 42.4 cm PT-OP-K Range of Motion Start: 03/24/25 11:45 Freq: Status: Active Protocol: Document 03/24/25 09:00 DCW (Rec: 03/24/25 12:09 DCW [id number]) Knee Goniometric Range of Motion Knee Right Patient Position Supine Flexion Active ( 10 degrees) Extension Active ( 113 degrees) Left Patient Position Supine Flexion Active ( 120 degrees) Extension Active ( 4 degrees) PT-OP-L Special Tests Start: 03/24/25 11:45 Freq: Status: Active Protocol: Document 03/24/25 09:00 DCW (Rec: 03/24/25 12:09 DCW [id number]) Special Tests Knee Special Tests Varus- 25 Degrees Test Results Negative Valgus- 25 Degrees Test Results Negative Posterior Draw Test Results Negative Patellar Grind Test Test Results Positive bilaterally Patella Tap Test Results Positive bilaterally Anterior Draw Test Results Negative PT-OP-M Strength Start: 03/24/25 11:45 Freq: Status: Active Protocol: Document 03/24/25 09:00 DCW (Rec: 03/24/25 12:10 DCW [id number]) Knee Strength Knee Manual Muscle Testing Right Flexion (S2) 4- Good- Extension (L3) 4 Good Left Flexion (S2) 4- Good- Extension (L3) 4 Good PT-OP-Q Treatments Start: 03/24/25 11:45 Freq: Status: Active Protocol: Document 04/12/25 12:16 LFG (Rec: 04/12/25 15:18 LFG [id number]) Cardio Equipment Recumbent Stepper (Sci-Fit) Duration (Minutes) 6 Resistance 5 Seat Position 12 Other Nustep Therapeutic Exercises Standing Exercises Hamstring stretch Standing Exercise Half standing - leg on mat table Name Side bilateral Comments R attempted, too tight and sensitive Calf stretch Standing Exercise Ricky calf stretch Name Side bilateral Equipment Used ricky Reps/Minutes [id number] Manual Therapy Treatment Consent Patient gave verbal Yes consent for manual treatment Soft Tissue Mobilization Gastroc Body Location Bilateral gastroc and distal HS Mobilization Type Instrument Assisted,Myofascial Release,Rolling Intensity/Depth Moderate Body Position Prone Comments decreased tissue mobility but no big trigger points, lateral and medial gastroc tighter than mid PT-OP-T Assessment and Plan Start: 03/24/25 11:45 Freq: Status: Active Protocol: Document 04/12/25 12:16 LFG (Rec: 04/12/25 15:18 LFG [id number]) Physical Therapy Assessment Goals Two Impairment Pt unable to ambulate more than five minutes without bilateral knee edema Ironworker Goal (LTG) Pt to report ability to ambulate >30 minutes without complaints of increased pain or edema LTG Duration 05/25/25 One Impairment Pt does not have an appropriate home exercise program Short Term Goal (STG Pt to be independent and compliant with an appropriate ) HEP STG Duration 04/24/25 Assessment Summary Assessment Attempted a new hamstring stretch today but pt was too limited in R LE due to tightness in the hamstring and calf. Pt complained more about the R LE but therapist found the L LE to also be tight and even more sensitive , but overall the R LE has reduced swelling since the initial evaluation. Recommended to see Amy for a possible lymphedema assessment. Continue to focus on improving STM, stretching, knee ROM, strengthening, increased functional mobility, and increased activity tolerance. Physical Therapy Plan Frequency and Duration Frequency of 2x/Week Treatment Plan of Care Start 03/24/25 Date Plan of Care End 05/25/25 Date Therapeutic Interventions Therapeutic Gait Training,Home Exercise Program,Joint Mobilizations Interventions ,Manual Therapy,Neuromuscular Re-education,Patient/ Caregiver Education,Self-Care/Home Management,Soft Tissue Mobilization,Taping,Therapeutic Activities, Therapeutic Exercises Modalities Cold Pack/Ice Massage,Electric Stimulation,Hot Packs, Ultrasound Next Visit Focus/Plan Next Note Type Treatment Note Next Visit Plan mini squats with TC, shuttle recovery, STM to R quad/HS /gastroc while in elevation as needed for improved tissue mobility and edema control.
--- NOTE | 2025-04-14 16:35 | PT.OTN ---
Addendum entered and electronically signed by Roscoe Morrison, PT 04/14/25 16:37: PT direct supervision and direction to student PT Warner Chung throughout session Original Note: Current Diagnoses Other chronic pain (04/14/25) Pain in right knee (04/14/25) Pain in left knee (04/14/25) Stiffness of right knee, not elsewhere classified (04/14/25) Stiffness of left knee, not elsewhere classified (04/14/25) Physical Therapy Treatment Note PT-OP-A Visit Information Start: 03/24/25 11:45 Freq: Status: Active Protocol: Document 04/14/25 12:15 LFG (Rec: 04/14/25 16:00 LFG [id number]) Out-Patient Physical Therapy Visit Information Visit Information Visit Type Discharge Summary Visit Start Time 12:16 Visit Stop Time 12:56 Visit Number 5 Number of LOAN MANAGER Visits 0 PT-OP-B Current Condition Start: 03/24/25 11:45 Freq: Status: Active Protocol: Document 03/24/25 09:00 DCW (Rec: 03/24/25 11:57 DCW [id number]) Current Condition History of Current Condition Onset Date Multi-year history Current Complaints Bilateral knee pain, soft-tissue tightness, knee stiffness History of Current Pt is an 80 year old female presenting with a long- Condition standing history of bilateral knee pain, right worse than left. Notes that it has slowly been worsening, however has gotten significantly worse over the past 4- 5 weeks. Pt spends [facility] in [place], and while there , tried some aquatic arthritis classes and Pilates, both of which resulted in some significant knee swelling. Notes riding an upright exercise bike or walking into [email or web address] from the parking lot also results in swelling. Pt notes there is general soreness, but she feels it is more soft tissue than degenerative arthritic pain. Previously would walk 45-60 minutes every day, [place] however has not been able to go out for the past few weeks because of her knees. Has a history of a right meniscus scope years ago. Has an appointment with an ortho up in [place] 04/13, hoping to get injections. Pt is a retired RN and nursing school instructor/mary. Prior Treatments and Bilateral knee x-ray: IMPRESSION: Medial compartment Tests predominant degenerative arthritis of the right knee with prominent medial compartment osteophytes and moderately severe joint space loss. per Raji Bautista M.D. on 03/16/2025 PT-OP-C Subjective Start: 03/24/25 11:45 Freq: Status: Active Protocol: Document 04/14/25 12:15 LFG (Rec: 04/14/25 16:00 LFG [id number]) OP-PT Subjective Patient Comments Patient Comments Pt reports that STM done last visit really helped. Overall is grateful with improvements and progress she has achieved through PT and feels like she is moving better. Anticipating knee surgery in May per Ortho visit yesterday and was given prehab exercises. Would like to continue HEP independently and come back to PT after the surgery after discussion of whether to keep or cx the remaining scheduled appointments. PT-OP-F Manual Assessment Start: 03/24/25 11:45 Freq: Status: Active Protocol: Document 03/24/25 09:00 DCW (Rec: 03/24/25 12:09 DCW [id number]) Manual Assessments Soft Tissue Assessment Soft Tissue Mobility Moderate tone with tenderness to palpation 3/4: wincing Assessment and withdraw in bilateral distal hamstrings and proximal gastroc, worse medially than laterally. Bilateral edema and joint effusion. Joint Mobility Assessment Joint Mobility Significant grinding with patella mobilization, R>L Assessment PT-OP-J Posture/Palpation/Skin Start: 03/24/25 11:45 Freq: Status: Active Protocol: Document 03/24/25 09:00 DCW (Rec: 03/24/25 12:09 DCW [id number]) Skin Assessment Circumference Measurement 10 cm inferior to joint line Location Right knee Measurement ( 38.7 Centimeters) Comments Left knee = 38.5 cm 10 cm superior to joint line Location Right knee Measurement ( 43.3 Centimeters) Comments Left knee = 42.7 cm Knee joint line Location Right knee Measurement ( 41.9 Centimeters) Comments Left knee = 42.4 cm PT-OP-K Range of Motion Start: 03/24/25 11:45 Freq: Status: Active Protocol: Document 03/24/25 09:00 DCW (Rec: 03/24/25 12:09 DCW [id number]) Knee Goniometric Range of Motion Knee Right Patient Position Supine Flexion Active ( 10 degrees) Extension Active ( 113 degrees) Left Patient Position Supine Flexion Active ( 120 degrees) Extension Active ( 4 degrees) PT-OP-L Special Tests Start: 03/24/25 11:45 Freq: Status: Active Protocol: Document 03/24/25 09:00 DCW (Rec: 03/24/25 12:09 DCW [id number]) Special Tests Knee Special Tests Varus- 25 Degrees Test Results Negative Valgus- 25 Degrees Test Results Negative Posterior Draw Test Results Negative Patellar Grind Test Test Results Positive bilaterally Patella Tap Test Results Positive bilaterally Anterior Draw Test Results Negative PT-OP-M Strength Start: 03/24/25 11:45 Freq: Status: Active Protocol: Document 03/24/25 09:00 DCW (Rec: 03/24/25 12:10 DCW [id number]) Knee Strength Knee Manual Muscle Testing Right Flexion (S2) 4- Good- Extension (L3) 4 Good Left Flexion (S2) 4- Good- Extension (L3) 4 Good PT-OP-Q Treatments Start: 03/24/25 11:45 Freq: Status: Active Protocol: Document 04/14/25 12:15 LFG (Rec: 04/14/25 16:00 LFG [id number]) Manual Therapy Treatment Consent Patient gave verbal Yes consent for manual treatment Soft Tissue Mobilization Gastroc Body Location Bilateral gastroc and distal HS Mobilization Type Myofascial Release Intensity/Depth Moderate Body Position Prone Comments decreased tissue mobility but no big trigger points, lateral and medial gastroc tighter than mid Self-Care/Home Management Treatment Education Patient Education Home Exercise Program Caregiver Education Discussed patients expectations of exercises pre and post knee surgery in May. PT-OP-T Assessment and Plan Start: 03/24/25 11:45 Freq: Status: Active Protocol: Document 04/14/25 12:15 LFG (Rec: 04/14/25 16:00 LFG [id number]) Physical Therapy Assessment Goals Two Impairment Pt unable to ambulate more than five minutes without bilateral knee edema Detention Deputy Goal (LTG) Pt to report ability to ambulate >30 minutes without complaints of increased pain or edema LTG Duration goal met One Impairment Pt does not have an appropriate home exercise program Short Term Goal (STG Pt to be independent and compliant with an appropriate ) HEP STG Duration goal met Assessment Summary Assessment Patient has progressed well overall demonstrating signs of decreased tenderness and swelling in the bilateral LE. Patient will be anticipating a surgery date for her R knee in may per he visit with the Ortho yesterday and would like to continue her HEP independently until then. Recommend discontinuing PT services at this time . Physical Therapy Plan Discharge Physical Therapy Discharge Reasons Patient Request Discharge Comments Satisfied with progress thus far and would like to continue HEP independently until after knee surgery in May Next Visit Focus/Plan Next Note Type Discharge Summary
== END 2025-04-17 10:01 | disposition home or self-care (01) ==
LOC: PHYS 12:15
PROVIDERS: Family Provider Family Medicine; PCP Family Medicine; Referring Provider Family Medicine; Visit Provider Family Medicine
DX: M25.561 Pain in right knee (principal); G89.29 Other chronic pain; M25.562 Pain in left knee; M25.662 Stiffness of left knee, not elsewhere classified; M25.661 Stiffness of right knee, not elsewhere classified
CPT/HCPCS: 97110; 97140; 97163; 97535

== ENCOUNTER → 2025-05-13 13:04 | Outpatient (CLI) | payer MEDICARE, BC, SELFPAY ==
--- NOTE | 2025-05-13 13:07 | DI.MG.S_ITS ---
MM screening mammo BI: 05/13/2025. BI-RADS: 2 CLINICAL: 80-year old female for bilateral screening mammogram. Tyrer-Cuzick lifetime risk of 1.8%. No personal or first-degree family history of breast cancer. PRIOR EXAMS 06/18/2023, 05/11/2021, 06/02/2019, 05/07/2017. MAMMOGRAPHY TECHNIQUE: 2D and 3D (tomosynthesis) digital mammographic views obtained, with additional images as needed for full coverage. Current study was also evaluated with a Computer Aided Detection (CAD) system. DENSITY C. The breasts are heterogeneously dense, which may obscure small masses. MAMMOGRAPHY FINDINGS Bilateral: Benign-appearing calcifications noted. There are no suspicious masses, calcifications, or other findings in the breast. IMPRESSION: * No evidence of malignancy with benign findings. RECOMMENDATIONS Bilateral * Annual screening mammography. OVERALL ASSESSMENT CATEGORY BI-RADS-2: Benign. [employer] recommends annual screening mammography beginning at age 40 for women with average risk of breast cancer. ELECTRONICALLY SIGNED: Anson Donald M.D. on 05/15/2025 at 06:41:57 AM PT Interpreting Station ID: [id number]
== END ==
LOC: MAMMO 13:06
PROVIDERS: Family Provider Family Medicine; PCP Family Medicine; Referring Provider Family Medicine; Visit Provider Family Medicine
DX: Z12.31 Encounter for screening mammogram for malignant neoplasm of breast (principal); R92.333 Mammographic heterogeneous density, bilateral breasts
CPT/HCPCS: 77063; 77067

== ENCOUNTER 2025-08-08 10:45 | Outpatient (RCR) | payer MEDICARE, BC, SELFPAY ==
--- NOTE | 2025-06-15 11:59 | PT.OPPOC ---
Physical, Occupational & Speech Therapy At [facility] Current Diagnoses Presence of right artificial knee joint (06/15/25) Visit Care Team Role Provider Type Conner Whitaker MD Family Provider Physician Primary Care Provider Specialty: Family Practice Address: [address] [place] [address], [facility] [place], [address] Email: [email or web address] Freddie Woody MD Attending Provider Non-Staff Referring Provider Specialty: Orthopedics Orthopedic Surgery Address: [address] [place] [address], [id number] Email: Plan Of Care PT OP: Lower Back/Lower Extremity Start: 06/15/25 11:37 Freq: Status: Active Protocol: Document 06/15/25 10:45 DCW (Rec: 06/15/25 11:58 DCW [id number]) Out-Patient Physical Therapy Visit Information Visit Information Visit Type Initial Evaluation Visit Start Time 10:45 Visit Stop Time 11:30 Visit Number 1 Number of LINING FELLER BLINDSTITCH Visits 0 Progress Note Due 07/15/25 Evaluation Information Evaluation Date 06/15/25 Current Condition History of Current Condition Onset Date 05/31/25 Current Complaints Pain, stiffness, gait difficulty s/p R TKA History of Current Pt is an 80 year old female presenting two weeks s/p R Condition TKA. Pt did receive two weeks of home health PT post-op , and has been fairly compliant with her HEP. Reports she had her carla removed yesterday, which helped a lot with pain, stiffness, and edema, and it has allowed her to cut back some on her Oxy. Notes she has a bit of trouble lifting her leg up into bed on in/out of the car, feels stiffer in the morning. Admits that her right knee frequently feels like it is going to buckle, still ambulating with a FWW. Was being seen at this facility for bilateral knee pain earlier this year, up until she decided to have her knee replacement, but was able to continue with pre-op HEP to help maintain strength and mobility leading up to surgery. OP-PT Subjective Patient Comments Patient Comments It feels so much better after getting those carla out. Patient Reported Improving Progress Patient Questionnaires Lower Extremity Functional Scale LEFS Score 33/80 = 41.25% Functional Tests 6 Minute Walk Test Distance 754' Device Used FWW Comments 2.09 ft/sec Timed Up and Go (TUG) Score 22.34 /c FWW Comments Three-trial average (23.84, 21.28, 21.91) Knee Goniometric Range of Motion Knee Measured in Degrees Right Patient Position Supine Flexion Active ( 70 degrees) Flexion Passive ( 60 degrees) Extension Active ( 4 degrees) Extension Passive ( 2 degrees) Comments Extension Lag: Knee extension declines to 20? during SLR Left Patient Position Supine Flexion Active ( 117 degrees) Flexion Passive ( 115 degrees) Extension Active ( 11 degrees) Extension Passive ( 11 degrees) Comments Extension Lag: Knee extension remains at 11? during SLR Knee Strength Knee Manual Muscle Testing Right Flexion (S2) 3- Fair- Extension (L3) 3- Fair- Left Flexion (S2) 4 Good Extension (L3) 4 Good Cardio Equipment Recumbent Bicycle Duration (Minutes) 3 Resistance Partial rotations Seat Position 4 Therapeutic Exercises Supine Exercises Heel Slides Supine Exercise Name Heel Slides Side right SLR Supine Exercise Name SLR Side right Sitting Exercises LAQ Sitting Exercise LAQ Name Side right Physical Therapy Assessment Rehab Potential Rehabilitation Excellent Potential Evaluation Complexity Number of Personal 1-2 Factors/ Comorbidities Number of Body 4 or More Systems Impaired Clinical Unstable Presentation at Evaluation Impairments Impairments Activity Tolerance,Balance,Edema,Functional Activities, Functional Mobility,Gait,Pain,ROM,Soft Tissue Mobility, Strength Goals Two Impairment Post-op weakness in right knee, MMT of both flexion and extension 3-/5 Timber Repairer Goal (LTG) Pt to improve strength in right knee flexion and extension to 4/5 or greater in order to help normalize gait pattern. LTG Duration 09/13/25 One Impairment Limited right knee flexion, AROM at 70? Timber Repairer Goal (LTG) Pt to improve right knee flexion AROM to 120? in order to improve ability to ascend/descend stairs LTG Duration 09/13/25 Assessment Summary Assessment Pt presents with signs and symptoms consistent with referring diagnosis. Pt at expected level of function 2 weeks s/p R TKA. Did well with home health, knee extension doing very well at this point, AROM of surgical knee extension in fact better than nonsurgical knee, 4? vs 11?. Right knee flexion still limited, measured today at 70? AROM. Pt ambulating well with FWW , still dealing with weakness and pain, which limits activity. Has been compliant with HEP so far, motivated to continue to do so. Pt will likely benefit from skilled therapy focusing on ROM, strengthening, gait training, edema management, functional mobility, and pain control. Will benefit from 3x/week for first 2-3 weeks, then with planned reduced frequency to 2x/week. Physical Therapy Plan Frequency and Duration Frequency of 2-3x/week Treatment Plan of Care Start 06/15/25 Date Plan of Care End 09/13/25 Date Therapeutic Interventions Therapeutic Balance Training,Gait Training,Home Exercise Program, Interventions Joint Mobilizations,Manual Therapy,Neuromuscular Re- education,Patient/Caregiver Education,Self-Care/Home Management,Soft Tissue Mobilization,Therapeutic Activities,Therapeutic Exercises Modalities Cold Pack/Ice Massage,Electric Stimulation,Hot Packs, Ultrasound Next Visit Focus/Plan Next Note Type Treatment Note Next Visit Plan ROM, gait training, STM/joint mobs, strengthening Plan of Care Dates Plan of Care Start Date 06/15/25 Plan of Care End Date 09/13/25 Electronically Signed by: Roscoe Morrison, PT 06/15/25 [id number] If you are in agreement with this Plan of Care, please return a signed and dated copy. I have reviewed this Plan of Care and certify that the skilled therapy services above are required to meet the patient?s needs. Physician Signature Date Printed Name and Credentials Clinical Instructor Signature Printed Name and Credentials
--- NOTE | 2025-06-19 14:36 | PT.OTN ---
Current Diagnoses Presence of right artificial knee joint (06/19/25) Physical Therapy Treatment Note PT OP: Lower Back/Lower Extremity Start: 06/15/25 11:37 Freq: Status: Active Protocol: Document 06/19/25 13:45 DCW (Rec: 06/19/25 14:35 DCW [id number]) Out-Patient Physical Therapy Visit Information Visit Information Visit Type Treatment Note Visit Start Time 13:45 Visit Stop Time 14:30 Visit Number 2 Number of RETAIL SALES ASSISTANT Visits 0 Progress Note Due 07/15/25 Evaluation Information Evaluation Date 06/15/25 OP-PT Subjective Patient Comments Patient Comments From a knee perspective, I'm doing alright, but notes she has stopped the opioid pain pills as of yesterday, so she is feeling it a little bit more. Cardio Equipment Recumbent Bicycle Duration (Minutes) 5 Resistance Partial rotations Seat Position 4 Gym Equipment Therapeutic Ball Knee flexion Exercise Details Knee flexion stretch with overpressure Ball Size/Color Red - 55 cm /c strap Body Position Supine Therapeutic Exercises Sitting Exercises Heel Slides Sitting Exercise Seated Heel slides Name Side right LAQ Sitting Exercise LAQ Name Side right Standing Exercises Knee flexion Standing Exercise Knee flexion step stretch Name Side right Manual Therapy Treatment Consent Patient gave verbal Yes consent for manual treatment Joint Mobilizations R knee Joint R knee A<->P Grade III Body Position Hooklying Physical Therapy Assessment Impairments Impairments Activity Tolerance,Balance,Edema,Functional Activities, Functional Mobility,Gait,Pain,ROM,Soft Tissue Mobility, Strength Goals Two Impairment Post-op weakness in right knee, MMT of both flexion and extension 3-/5 Half-Way Goal (LTG) Pt to improve strength in right knee flexion and extension to 4/5 or greater in order to help normalize gait pattern. LTG Duration 09/13/25 One Impairment Limited right knee flexion, AROM at 70? Half-Way Goal (LTG) Pt to improve right knee flexion AROM to 120? in order to improve ability to ascend/descend stairs LTG Duration 09/13/25 Assessment Summary Assessment Pt tolerated treatment well, progressing as expected s/ p TKA. Pt still limited with flexion, focused mainly today on flexion activities. Extension ROM continues to look great. Focus on ROM, strengthening, and functional mobility, add in scar mobility as incision heals. Physical Therapy Plan Frequency and Duration Frequency of 2-3x/week Treatment Plan of Care Start 06/15/25 Date Plan of Care End 09/13/25 Date Therapeutic Interventions Therapeutic Balance Training,Gait Training,Home Exercise Program, Interventions Joint Mobilizations,Manual Therapy,Neuromuscular Re- education,Patient/Caregiver Education,Self-Care/Home Management,Soft Tissue Mobilization,Therapeutic Activities,Therapeutic Exercises Modalities Cold Pack/Ice Massage,Electric Stimulation,Hot Packs, Ultrasound Next Visit Focus/Plan Next Note Type Treatment Note Next Visit Plan ROM, gait training, STM/joint mobs, strengthening
--- NOTE | 2025-06-21 14:35 | PT.OTN ---
Current Diagnoses Presence of right artificial knee joint (06/21/25) Physical Therapy Treatment Note PT OP: Lower Back/Lower Extremity Start: 06/15/25 11:37 Freq: Status: Active Protocol: Document 06/21/25 13:52 SP (Rec: 06/21/25 15:38 SP [id number]) Out-Patient Physical Therapy Visit Information Visit Information Visit Type Treatment Note Visit Start Time 13:52 Visit Stop Time 14:35 Visit Number 3 Number of COMPOSITE BOND WORKER Visits 1 Progress Note Due 07/15/25 Evaluation Information Evaluation Date 06/15/25 OP-PT Subjective Patient Comments Patient Comments Pt reports feels leaned over walking with FWW. Thinks won't need FWW for alot longer, using kitchen counter for WB when putting away dishes, but reports R knee perla at times during gait with FWW. She states has discomfort over lateral R gastroc and behind knee, compliant with HEP hard to lift leg exercise though. Therapeutic Exercises Supine Exercises QS Supine Exercise Name discussed continue post-op ex 3x day Side right Equipment Used noted quad flicker, challenge superior patella mobility Reps/Minutes 5 reps Comments tactile cues press into COMPOSITE BOND WORKER hand posterior knee- noted HS & gastroc recruit Heel Slides Supine Exercise Name Heel Slides Side right Reps/Minutes 10 Comments limited range- next tx measure SLR Supine Exercise Name SLR: Hold for now due to considerable lag today 06/21/25 Side right Comments very challenge lift lower leg off table Sitting Exercises Heel Slides Sitting Exercise Seated Heel slides Name Side right Equipment Used *patellar tendon pain, limited reps today 06/21/25 Reps/Minutes 5 reps Comments tends to use BUEs for support, discussed use RLE & stationary scoot fwd LAQ Sitting Exercise LAQ Name Side right Reps/Minutes 5 reps x2 Standing Exercises aliza stepping ROM Standing Exercise forward, lateral Name Side bilateral Equipment Used BUE on //bars Reps/Minutes 2 laps each direction Comments cues for tall posture and decreased circumduction on R & TKE R stance LE Gait Training Gait Activity Darrion Trek Poles Description 4pt gait, unable perform 2pt gait unstable Device Used darrion Distance/Duration 20 ft x2 laps Treatment Focus instruction patterning, stability midline, Comments little challenging stability and patterning, no LOB, discussed hold off on using right now 06/21/25. 4WW Description Trialed in PT Device Used 4WW Level of Assistance Mod I-I Distance/Duration 50 ft x2 Treatment Focus instruction brake mgt, positioning, pacing, proximity for upright posture Comments Improved proper understanding with 4WW brake mgt instruction and proximity, decreased UE WB support needed. Cues as needed for TKE RLE WB for safety reduce risk for buckling has been happening with cramping over lateral calf and behind knee. FWW Description enter/exit clinic Level of Assistance Mod I Distance/Duration 80 ft to/from waiting room Treatment Focus posture, proximity to FWW, R LE DF foot clearance better Comments Adjusted FWW 1 knotch higher height, improved upright posture/proximity to FWW and foot clearance less WB into BUEs. Discussed getting new ski vs rubber tips for ease glide celia. Manual Therapy Treatment Consent Patient gave verbal Yes consent for manual treatment Soft Tissue Mobilization R knee scar mobility Body Location supported superior/inferior/med/lat Comments long axis knee extension and slight flexion, discussed will continue in PT, she can do more when steristrips fall off, don't pull off. R knee Body Location quad, HS, gastroc, soleus, plantaris Mobilization Type Rolling,Sustained Pressure,Other Comments sensitive prox plantaris, lateral gastroc and soleus.; gentle STMs and MWM over plantaris DF ankle AROM hooklying R knee bent Joint Mobilizations R patella mobility Direction med/lat/sup/inf Grade II Body Position Supine R knee Joint R knee A<->P Grade III Body Position Hooklying Self-Care/Home Management Treatment Education Patient Education Body Mechanics,Fall Risk,Home Exercise Program,Joint Protection,Pain Management,Posture,Safety Other Education Time spent education R knee straight sleeping but cascade pillows to allow LE elevation for PPT and lumbar support comfort and decreased pain. Ed getting skis for FWW borrrowed from friend to improved celia glide. Discussion continue use of FWW in kitchen prevent risk R knee little buckling as did in PT across room. Instruction use of 4WW and brake mgt ok to utilize but wait on using trek poles today, R knee not strong and not steady enough right now. Electric Stimulation Electric Stimulation R knee Body Location Next Syrian Stim to improve quad set Physical Therapy Assessment Goals Two Impairment Post-op weakness in right knee, MMT of both flexion and extension 3-/5 Warehouse Technician Goal (LTG) Pt to improve strength in right knee flexion and extension to 4/5 or greater in order to help normalize gait pattern. LTG Duration 09/13/25 One Impairment Limited right knee flexion, AROM at 70? Skilled Nursing Goal (LTG) Pt to improve right knee flexion AROM to 120? in order to improve ability to ascend/descend stairs LTG Duration 09/13/25 Assessment Summary Assessment Pt challenged with quad engagement this tx multiple positions, decreased R patella mobility with QS, noted HS and gastroc compensations after 2 reps with reports of discomfort pain lateral R calf with at times R knee perla but self support corrects. Tactile feedback under R knee for posterior pressure and cues durign gait TKE for midstance support and BUEs WB FWW and // bars. Noted circumduction RLE during hurdles for functional R knee flexion. Education use FWW new ski vs rubber bottom wearing out, use of 4WW ok to utilize after education propb brake mgt. Pt would benefit from utilizing Syrian stim next tx, discussed with primary PT. Physical Therapy Plan Frequency and Duration Frequency of 2-3x/week Treatment Plan of Care Start 06/15/25 Date Plan of Care End 09/13/25 Date Therapeutic Interventions Therapeutic Balance Training,Gait Training,Home Exercise Program, Interventions Joint Mobilizations,Manual Therapy,Neuromuscular Re- education,Patient/Caregiver Education,Self-Care/Home Management,Soft Tissue Mobilization,Therapeutic Activities,Therapeutic Exercises Modalities Cold Pack/Ice Massage,Electric Stimulation,Hot Packs, Ultrasound Next Visit Focus/Plan Next Note Type Treatment Note Next Visit Plan R knee AROM, Next Trial Syrian Stim to R quad during QS then trial SAQ for progression strength TKE for WB gait. POC: ROM, gait training, STM/joint mobs, strengthening
--- NOTE | 2025-06-23 14:33 | PT.OTN ---
Current Diagnoses Presence of right artificial knee joint (06/23/25) Physical Therapy Treatment Note PT OP: Lower Back/Lower Extremity Start: 06/15/25 11:37 Freq: Status: Active Protocol: Document 06/23/25 13:53 SP (Rec: 06/23/25 15:53 SP [id number]) Out-Patient Physical Therapy Visit Information Visit Information Visit Type Treatment Note Visit Start Time 13:53 Visit Stop Time 14:33 Visit Number 4 Number of BLOCK HAND Visits 2 Progress Note Due 07/15/25 Evaluation Information Evaluation Date 06/15/25 OP-PT Subjective Patient Comments Patient Comments Pt reports sleeping alot better with use pillows, elevating the FWW 1 knotch almost eliminated neck and upper back strain and the feedback press knee down into rolled towel helpe alot with comfort of the quad sets. She arrives with little more swelling in R knee today. Palpation Assessment Location R knee Palpation Location swelling assessment measurement: took home most swollen area 45cm Palpation Findings Edema Palpation Details R mid patella: 44.5 cm R 5 cm above mid patella: 45.5 cm R 5 cm below mid patella: 41 cm Knee Goniometric Range of Motion Knee Right Knee ROM WFL No Patient Position Supine Flexion Active ( 80 degrees) Extension Active ( 2 degrees) Comments heelslide AROM measurement AROM Therapeutic Exercises Supine Exercises SAQ Supine Exercise Name added reps after [place] Stim for review post-op HEP Side right Equipment Used foam roller under knee Reps/Minutes 10 sec hold 3 reps Sitting Exercises Clamshell Sitting Exercise added to HEP with HO Name Side bilateral Resistance Tb #2 around thighs Reps/Minutes 15 reps Comments cued slow eccentric motion (later will add longer hold) - good hip mm tiring Heel Slides Sitting Exercise Seated Heel slides Name Side right Equipment Used *patellar tendon pain, limited reps Reps/Minutes 5 reps Comments tends to use BUEs for support, discussed use RLE & stationary scoot fwd LAQ Sitting Exercise LAQ Name Side right Reps/Minutes 5 reps Comments post [place] Stim and recheck AROM Standing Exercises TKE Standing Exercise added to HEP with HO Name Side right Resistance TB #1 light blue (BLOCK HAND anchored, discussed holding right now) Equipment Used *bend / straighted quad set R knee into extension Reps/Minutes 5 SH x10 reps Comments cued keep trunk tall and still, L leg straight still, keep heels down Gait Training Gait Activity FWW Description enter/exit clinic Level of Assistance Mod I Distance/Duration 80 ft to/from waiting room Treatment Focus posture, proximity to FWW, R LE DF foot clearance better Comments improved posture, cued TKE each knee during WB, tends to walk with them flexed slightly, ed can cause undo pressure anterior knees and more challenging and need UE WB. Manual Therapy Treatment Consent Patient gave verbal Yes consent for manual treatment Joint Mobilizations R patella mobility Direction med/lat/sup/inf Grade II Body Position Supine R knee Joint R knee A<->P Grade III Body Position seated Taping Ktaping Body Location edema reduction/absorption Treatment Focus decreased edema Type of Tape ktape Skin Inspection normal coloring, warm, skin little more swollen today Comments 2 fanned strips: superior to inferior medially and inferior to superior lateral jt line. Neuro Re-Education Treatment Balance Activities QS & SAQ Details Quad set and SAQ last 1 min during [place] Stim Equipment R knee over rolled towel>foam roller Reps/Duration 7 min 10/10resps quad set, 1 min SAQ 5/5 reps Comments 8 min total, cues for quad engagement- with education re- educate quad contraction for TKE midstance gait phase. Self-Care/Home Management Treatment Education Patient Education Home Exercise Program,Joint Protection,Pain Management, Posture,Safety Other Education discussion TKE gait for decrease tension over anterior R knee gait with FWW, discussion adverse affects ( redness, itching, tingling) of ktaping can remove if needed, otherwise can stay on for 2-4 days and go through shower if helping. Continue use CP for swelling control. Education mechanics gait, TKE mid stance and knee flexion swing through with upright posture. Electric Stimulation Electric Stimulation R knee Body Location [place] Stim to improve quad set Intensity 17 Contraction Type Normal Cycle 10/10 Ramp 2.0 Patient Position Hooklying Comments good feedback quad tiring (8 min), incorporated with QS 7 min, SAQ last 1 min. Physical Therapy Assessment Goals Two Impairment Post-op weakness in right knee, MMT of both flexion and extension 3-/5 Longterm Goal (LTG) Pt to improve strength in right knee flexion and extension to 4/5 or greater in order to help normalize gait pattern. LTG Duration 09/13/25 One Impairment Limited right knee flexion, AROM at 70? [employer] Crew Boss Goal (LTG) Pt to improve right knee flexion AROM to 120? in order to improve ability to ascend/descend stairs LTG Duration 09/13/25 Assessment Summary Assessment Pt reported good quad tiring and effort with inclusion [place] Stim. Assessed swelling and ROM measurements today for baseline today circumference and made 10 deg flexion and 2 deg extensio gains AROM R knee. Initaited TKE standing and hip clamshell seated today for progress strength in hope help R medial distal VM support, think she demonstrates valgus cave inward and puts over strain on medial knee. Improvement corrections alignment with cuing during ther ex today. Pt declined CP end tx, will ice at home. Physical Therapy Plan Frequency and Duration Frequency of 2-3x/week Treatment Plan of Care Start 06/15/25 Date Plan of Care End 09/13/25 Date Therapeutic Interventions Therapeutic Balance Training,Gait Training,Home Exercise Program, Interventions Joint Mobilizations,Manual Therapy,Neuromuscular Re- education,Patient/Caregiver Education,Self-Care/Home Management,Soft Tissue Mobilization,Therapeutic Activities,Therapeutic Exercises Modalities Cold Pack/Ice Massage,Electric Stimulation,Hot Packs, Ultrasound Next Visit Focus/Plan Next Note Type Treatment Note Next Visit Plan R knee AROM, Next Trial [place] Stim to R quad during QS then trial SAQ for progression strength TKE for WB gait. POC: ROM, gait training, STM/joint mobs, strengthening
--- NOTE | 2025-06-29 14:47 | PT.OTN ---
Current Diagnoses Presence of right artificial knee joint (06/28/25) Physical Therapy Treatment Note PT OP: Lower Back/Lower Extremity Start: 06/15/25 11:37 Freq: Status: Active Protocol: Document 06/28/25 13:52 SP (Rec: 06/28/25 14:39 SP [id number]) Out-Patient Physical Therapy Visit Information Visit Information Visit Type Treatment Note Visit Start Time 13:52 Visit Stop Time 14:47 Visit Number 5 Number of TUBE SORTER Visits 3 Progress Note Due 07/15/25 OP-PT Subjective Patient Comments Patient Comments Pt reports knee swollen, arrives using her FWW, c/o medial R knee pain, Ktaping helped medial knee support but took off yesterday and needs to be retaped, Palpation Assessment Location R knee Palpation Location swelling assessment measurement: took home most swollen area 45cm Palpation Findings Edema Palpation Details R mid patella: 44.5 cm R 5 cm above mid patella: 45.5 cm R 5 cm below mid patella: 41 cm Cardio Equipment Bicycle (Upright) Duration (Minutes) 4 Resistance 1- rocking motion Seat Position 7- CGA safety getting on/off- Other ed self height assessment for home carryover, need step stool get on bike. Therapeutic Exercises Supine Exercises HS stretch Supine Exercise Name manual stretch, then ed self HS stretch with and without ankle pump Side right Reps/Minutes 30 sec x3 Comments cued slow SLR motion, grasp behind thigh& lower leg lift to feel gentle str SAQ Supine Exercise Name added reps after [place] Stim for review post-op HEP Side right Equipment Used foam roller under knee Reps/Minutes 10 sec hold 3 reps QS Supine Exercise Name discussed continue post-op ex 3x day Side right Equipment Used noted quad flicker, challenge superior patella mobility Reps/Minutes 5 reps Comments tactile cues press into TUBE SORTER hand posterior knee- noted HS & gastroc recruit Heel Slides Supine Exercise Name Heel Slides Side right Resistance AROM Reps/Minutes 10 Comments warm up flexion post maual Sitting Exercises HS curl Sitting Exercise trialed in PT (declined HO) Name Resistance Tb #1 Reps/Minutes 10 reps Comments no pain reported quad/incision nor patellar tendon Standing Exercises TKE Standing Exercise added to HEP with HO Name Side right Resistance TB #1 light blue (TUBE SORTER anchored, discussed holding right now) Equipment Used *bend / straighted quad set R knee into extension Reps/Minutes 5 SH x10 reps Comments patellar tendon irritation- discussed DC peforming right now 06/28/25 Gait Training Gait Activity Demetri Trek Poles Description 2pt gait unstable Device Used demetri Distance/Duration 20 ft x2 laps Treatment Focus instruction patterning, stability midline, Comments improved patterning no LOB, but tiring distance, decreased strength and endurance. FWW Description enter/exit clinic Level of Assistance Mod I Distance/Duration 80 ft to/from waiting room Treatment Focus good form Comments improved gait receiprocal stepping, cues for proximity to FWW, recommended borrorow 4ww from soroptomist Fri for increased support more mobility, FWW seems limiting / to slow and back legs FWW resistant on floor. Pt stated will get a 4Ww FRi. Manual Therapy Treatment Consent Patient gave verbal Yes consent for manual treatment Soft Tissue Mobilization R knee Body Location quad, HS, gastroc, soleus, plantaris Mobilization Type Rolling,Sustained Pressure,Other Intensity/Depth Moderate Body Position Hooklying Comments sensitive prox plantaris; gentle STMs and MWM over plantaris DF ankle AROM hooklying R knee bent Joint Mobilizations R patella mobility Joint R Direction med/lat/sup/inf Grade II Body Position Supine R knee Joint R knee A<->P Grade III Body Position seated Taping Ktaping Body Location edema reduction/absorption and medial comfort support Treatment Focus decreased edema Type of Tape ktape Skin Inspection normal coloring, warm, skin little more swollen today Comments 1 fanned strip: superior to inferior medially R knee jt line along mid/distal adductor. Self-Care/Home Management Treatment Education Patient Education Body Mechanics,Home Exercise Program,Pain Management, Safety Other Education Continued ed self TKE DC, can add resisted HS curl. Discussed continue icing for swelling control which she is. Consider acquiring 4WW for longer endurance support and place to sit due to FWW seems slow and limiting her with forward posture resistance on floor pushing it. Bilateral trek poles don't give enough support during longer distance, still to taxing. Physical Therapy Assessment Goals Two Impairment Post-op weakness in right knee, MMT of both flexion and extension 3-/5 Snf Goal (LTG) Pt to improve strength in right knee flexion and extension to 4/5 or greater in order to help normalize gait pattern. LTG Duration 09/13/25 One Impairment Limited right knee flexion, AROM at 70? Youth Director Goal (LTG) Pt to improve right knee flexion AROM to 120? in order to improve ability to ascend/descend stairs LTG Duration 09/13/25 Assessment Summary Assessment Pt improved mobility, verbal discussion FWW is limiting endurance to resistive at this point and bilateral trek poles not supportive enough. SHe responded well to manual, no significant improvement in swellign reduction but improved support mobiltiy with fanned ktaping. DIscussed continue with post op HEP at this time, trial home bike if able get on safely. Good feedback response to rocking on upright bike, trial for home. Pt continues to have soreness and swelling around R knee, slight warm to touch. She is compliant with icing home, declines in PT. Physical Therapy Plan Frequency and Duration Frequency of 2-3x/week Treatment Plan of Care Start 06/15/25 Date Plan of Care End 09/13/25 Date Therapeutic Interventions Therapeutic Balance Training,Gait Training,Home Exercise Program, Interventions Joint Mobilizations,Manual Therapy,Neuromuscular Re- education,Patient/Caregiver Education,Self-Care/Home Management,Soft Tissue Mobilization,Therapeutic Activities,Therapeutic Exercises Modalities Cold Pack/Ice Massage,Electric Stimulation,Hot Packs, Ultrasound Next Visit Focus/Plan Next Note Type Treatment Note Next Visit Plan R knee AROM- remeasure, assess Ktape for swelling and check circumferance measurement, see if got 4WW progress HEP if can, retry upright bike vs stepper if tolerated good response. Retry [place] Stim to R quad during QS then trial SAQ for progression strength TKE for WB gait if needed. POC: ROM, gait training, STM/joint mobs, strengthening
--- NOTE | 2025-06-30 14:29 | PT.OTN ---
Current Diagnoses Presence of right artificial knee joint (06/30/25) Physical Therapy Treatment Note PT OP: Lower Back/Lower Extremity Start: 06/15/25 11:37 Freq: Status: Active Protocol: Document 06/30/25 13:45 DCW (Rec: 06/30/25 14:28 DCW [id number]) Out-Patient Physical Therapy Visit Information Visit Information Visit Type Treatment Note Visit Start Time 13:45 Visit Stop Time 14:30 Visit Number 6 Number of E M ASSEMBLER Visits 0 Progress Note Due 07/15/25 Evaluation Information Evaluation Date 06/15/25 OP-PT Subjective Patient Comments Patient Comments I'm feeling a lot better. It's like four weeks out from surgery, I suddenly turned a corner. Cardio Equipment Recumbent Bicycle Duration (Minutes) 5 Resistance Partial rotations Seat Position 5 Other VCs for knee alignment Gym Equipment Shuttle Recovery Bilateral Squats Resistance 25# Shuttle Recovery Stable Platform Reps/Time 5 hold at end-range flexion Therapeutic Exercises Sitting Exercises Hamstring Stretch Sitting Exercise Hamstring Stretch Name Side bilateral Comments 40 hold Other Exercises Lunge Other Exercise Name Mini-lunge Side bilateral Equipment Used // bars Comments Knee to toes, VCs for alignment Manual Therapy Treatment Joint Mobilizations R patella mobility Joint R Direction med/lat/sup/inf Grade II Body Position Supine R knee Joint R knee A<->P Grade III Body Position seated Physical Therapy Assessment Impairments Impairments Activity Tolerance,Balance,Edema,Functional Activities, Functional Mobility,Gait,Pain,ROM,Soft Tissue Mobility, Strength Goals Two Impairment Post-op weakness in right knee, MMT of both flexion and extension 3-/5 Manager Floral Goal (LTG) Pt to improve strength in right knee flexion and extension to 4/5 or greater in order to help normalize gait pattern. LTG Duration 09/13/25 One Impairment Limited right knee flexion, AROM at 70? Manager Floral Goal (LTG) Pt to improve right knee flexion AROM to 120? in order to improve ability to ascend/descend stairs LTG Duration 09/13/25 Assessment Summary Assessment Pt showing good overall improvement with mobility, gait , and edema. ROM slowly improving, right knee flexion at 92? today. Continue to focus on joint mobility, ROM, strengthening, and gait. Physical Therapy Plan Frequency and Duration Frequency of 2-3x/week Treatment Plan of Care Start 06/15/25 Date Plan of Care End 09/13/25 Date Therapeutic Interventions Therapeutic Balance Training,Gait Training,Home Exercise Program, Interventions Joint Mobilizations,Manual Therapy,Neuromuscular Re- education,Patient/Caregiver Education,Self-Care/Home Management,Soft Tissue Mobilization,Therapeutic Activities,Therapeutic Exercises Modalities Cold Pack/Ice Massage,Electric Stimulation,Hot Packs, Ultrasound Next Visit Focus/Plan Next Note Type Treatment Note Next Visit Plan R knee AROM- remeasure, assess Ktape for swelling and check circumferance measurement, see if got 4WW progress HEP if can, retry upright bike vs stepper if tolerated good response. Retry [place] Stim to R quad during QS then trial SAQ for progression strength TKE for WB gait if needed. POC: ROM, gait training, STM/joint mobs, strengthening
--- NOTE | 2025-07-04 16:03 | PT.OTN ---
Current Diagnoses Presence of right artificial knee joint (07/04/25) Physical Therapy Treatment Note PT OP: Lower Back/Lower Extremity Start: 06/15/25 11:37 Freq: Status: Active Protocol: Document 07/04/25 15:15 DCW (Rec: 07/04/25 16:02 DCW [id number]) Out-Patient Physical Therapy Visit Information Visit Information Visit Type Treatment Note Visit Start Time 15:15 Visit Stop Time 16:00 Visit Number 7 Number of GEODETIC TECHNICIAN Visits 0 Progress Note Due 07/15/25 Evaluation Information Evaluation Date 06/15/25 OP-PT Subjective Patient Comments Patient Comments I think I'm to the point where I can sleep on my side without my knee hurting. Cardio Equipment Recumbent Bicycle Duration (Minutes) 5 Resistance Partial rotations Seat Position 5 Other VCs for knee alignment Gym Equipment Shuttle Recovery Bilateral Squats Details R Knee PROM 95? Resistance 37# Shuttle Recovery Stable Platform Reps/Time 5 hold at end-range flexion Therapeutic Ball Knee flexion Exercise Details Knee flexion stretch with overpressure Ball Size/Color Blue 45 cm /c strap Body Position Supine Comments R PROM flexion at 96? Therapeutic Exercises Supine Exercises HS stretch Supine Exercise Name Manual hamstring stretch Side right Reps/Minutes 40 hold x5 SLR Supine Exercise Name SLR Side right Comments very challenge, less of a lag Standing Exercises Knee flexion Standing Exercise Knee flexion step stretch Name Side right Manual Therapy Treatment Consent Patient gave verbal Yes consent for manual treatment Joint Mobilizations R patella mobility Joint R Direction med/lat/sup/inf Grade II Body Position Supine R knee Joint R knee A<->P Grade III Body Position seated Physical Therapy Assessment Impairments Impairments Activity Tolerance,Balance,Edema,Functional Activities, Functional Mobility,Gait,Pain,ROM,Soft Tissue Mobility, Strength Goals Two Impairment Post-op weakness in right knee, MMT of both flexion and extension 3-/5 Shot Fireman Goal (LTG) Pt to improve strength in right knee flexion and extension to 4/5 or greater in order to help normalize gait pattern. LTG Duration 09/13/25 One Impairment Limited right knee flexion, AROM at 70? Longterm Goal (LTG) Pt to improve right knee flexion AROM to 120? in order to improve ability to ascend/descend stairs LTG Duration 09/13/25 Assessment Summary Assessment Pt making progress with ROM, flexion measured at 101? following joint mobs at end of session. Pt instructed to add SLR back into HEP, able to perform with minimal lag at this time. Physical Therapy Plan Frequency and Duration Frequency of 2-3x/week Treatment Plan of Care Start 06/15/25 Date Plan of Care End 09/13/25 Date Therapeutic Interventions Therapeutic Balance Training,Gait Training,Home Exercise Program, Interventions Joint Mobilizations,Manual Therapy,Neuromuscular Re- education,Patient/Caregiver Education,Self-Care/Home Management,Soft Tissue Mobilization,Therapeutic Activities,Therapeutic Exercises Modalities Cold Pack/Ice Massage,Electric Stimulation,Hot Packs, Ultrasound Next Visit Focus/Plan Next Note Type Treatment Note Next Visit Plan R knee AROM- remeasure, assess Ktape for swelling and check circumference measurement, see if got 4WW progress HEP if can, retry upright bike vs stepper if tolerated good response. Retry [place] Stim to R quad during QS then trial SAQ for progression strength TKE for WB gait if needed. POC: ROM, gait training, STM/joint mobs, strengthening
--- NOTE | 2025-07-06 17:04 | PT.OTN ---
Current Diagnoses Presence of right artificial knee joint (07/06/25) Physical Therapy Treatment Note PT OP: Lower Back/Lower Extremity Start: 06/15/25 11:37 Freq: Status: Active Protocol: Document 07/06/25 13:05 NBM (Rec: 07/06/25 13:53 NBM Laptop) Out-Patient Physical Therapy Visit Information Visit Information Visit Type Treatment Note Visit Start Time 13:05 Visit Stop Time 13:48 Visit Number 8 Number of DELIVERY DRIVER Visits 1 Progress Note Due 07/15/25 Evaluation Information Evaluation Date 06/15/25 OP-PT Subjective Patient Comments Patient Comments Fady reports she [place] long [place] [employer] [place] yesterday with new 4WW and is sore today. She adjusted 4WW to same height as FWW but Hamstrings feel tight. Her R knee was feeling really good in the moment , and better than before surgery. She iced afterward, didn't sleep well last night and took oxycodone, and has not iced yet today. She did walk around the house furniture walking to loosen it up, but also used walker some today at home because of increased soreness today . Since Thursday some spasms on inside area of knee occasionally. Knee Goniometric Range of Motion Knee Right Knee ROM WFL No Patient Position Supine Flexion Active ( 102 degrees) Flexion Passive ( 105 degrees) Extension Active ( 2 degrees) Comments heelslide AROM measurement R Knee flexion PROM improves from 103 to 105 degrees with overpressure and breathwork, AROM 102 to 101- max AROM achieved 102 degrees today. Cardio Equipment Recumbent Bicycle Duration (Minutes) 8 Resistance Partial rotations, ROM increases bwd>fwd w/ breathwork Seat Position 6>5 Other VCs for knee alignment, diaphragmatic breathing i/s between seat 6>5 Therapeutic Exercises Supine Exercises HS curl Side right Equipment Used 45cm blue physioball Comments dc'd d/t distal HS pain HS stretch Supine Exercise Name 1. on 45cm physioball w/ DF 2. Manual hamstring stretch Side right Reps/Minutes 1. 30 hold 2. 40 hold x5 Comments 1. discontinued d/t distal HS pain. 2. gentle SAQ Side right Equipment Used foam roller under knee Reps/Minutes 2 breath cycle hold x 10 reps Comments initial cues no breath hold QS Side right Reps/Minutes 5 reps Comments tactile cues press into small towel roll posterior knee Heel Slides Supine Exercise Name Heel Slides Side right Resistance AROM Reps/Minutes 2 x10 Sitting Exercises Diaphragmatic breathing Sitting Exercise for pain guarding/management, hand on chest for Name biofeedback Reps/Minutes 3' Comments during seated recumbent warmup Manual Therapy Treatment Consent Patient gave verbal Yes consent for manual treatment Soft Tissue Mobilization R knee scar mobility Body Location supported superior/inferior/med/lat Comments long axis knee extension and slight flexion, discussed will continue in PT, she can do more when steristrips fall off, don't pull off. Skin inspection reveals staple left in incision (steri strip recently fell off). No signs of infection noted. Pt i/s to leave in place and contact surgeon's office for removal. R knee Body Location quad, HS, TFL, ITB, adductors, plantaris Mobilization Type Rolling,Sustained Pressure,Other Intensity/Depth Moderate Body Position Hooklying Comments gentle STMs and MWM over plantaris DF ankle AROM hooklying R knee bent Gentle manual Hamstring stretch into hip/knee flexion tolerated well w/ light LE support; tolerates flexed position ~5 sec without LE support for knee flexion stretch. Joint Mobilizations R patella mobility Joint R Direction med/lat/sup/inf Grade II Body Position Supine Self-Care/Home Management Treatment Education Patient Education Body Mechanics,Home Exercise Program,Joint Protection, Pain Management,Safety Other Education Pt edu re: use of cryotherapy and i/s in breath for pain guarding/management via Parasympathetic NS activation. Pt i/s how to use breathwork w/ HEP. Pt educated that seat of 4WW may flip up out of way to improve upright posture with use; she is to check at home and bring to PT for gait training. Skin inspection: staple left in incision - pt edu to leave it alone (explained risk of infection w/ self- removal), and to contact surgeon's office today for removal. Hot Pack/Cold Pack Treatment Cold Pack Comments Pt declines cryotherapy, takes To Go ice-pack for icing R knee in car ten minutes w/ encouragement to ice prn at home. Physical Therapy Assessment Goals Two Impairment Post-op weakness in right knee, MMT of both flexion and extension 3-/5 Senior Care Goal (LTG) Pt to improve strength in right knee flexion and extension to 4/5 or greater in order to help normalize gait pattern. LTG Duration 09/13/25 One Impairment Limited right knee flexion, AROM at 70? Assembler Finger Buffs Goal (LTG) Pt to improve right knee flexion AROM to 120? in order to improve ability to ascend/descend stairs 07/06/25: AROM 102, PROM 105 deg w/ breathwork LTG Duration 09/13/25 Assessment Summary Assessment Fady presents without Kinesiotape and with FWW. Treatment focus on improving R knee flexion range of motion: PROM improves from 103 to 105 degrees with overpressure and breathwork, AROM max achieved 102 degrees today. Fady demos breath holding w/ pain apprehension and is instructed in use of breathwork for pain management and pain guarding. ROM on recumbent bicycle improves backwards greater than forwards - pt close to completing full rotation backwards w/ breathwork. Hamstring pain with supine stretching over 45cm physioball, but tolerates gentle manual HS stretch and transition into manual hip and knee flexion. She is educated to check if 4WW seat flips up out of the way to step in to walker for upright posture and to bring for gait training. Pt declines ice end of session so is given to-go ice pack for use in car and encouraged to ice at bedtime for improved pain management for sleep. Staple remaining which pt is instructed to leave in place and contact surgeon's office for removal. Physical Therapy Plan Frequency and Duration Frequency of 2-3x/week Treatment Plan of Care Start 06/15/25 Date Plan of Care End 09/13/25 Date Therapeutic Interventions Therapeutic Balance Training,Gait Training,Home Exercise Program, Interventions Joint Mobilizations,Manual Therapy,Neuromuscular Re- education,Patient/Caregiver Education,Self-Care/Home Management,Soft Tissue Mobilization,Therapeutic Activities,Therapeutic Exercises Modalities Cold Pack/Ice Massage,Electric Stimulation,Hot Packs, Ultrasound Next Visit Focus/Plan Next Note Type Treatment Note Next Visit Plan Next: Consider supine heel digs for isometric HS strengthening, and if sleeping w/ knees flexed. R knee AROM- remeasure, assess Ktape for swelling and check circumference measurement, see if brought 4WW for gait training progress HEP if can, retry upright bike vs stepper if tolerated good response. Retry [place]ian Stim to R quad during QS then trial SAQ for progression strength TKE for WB gait if needed. POC: ROM, gait training, STM/joint mobs, strengthening
--- NOTE | 2025-07-10 09:04 | PT.OTN ---
Current Diagnoses Presence of right artificial knee joint (07/10/25) Physical Therapy Treatment Note PT OP: Lower Back/Lower Extremity Start: 06/15/25 11:37 Freq: Status: Active Protocol: Document 07/10/25 08:30 SP (Rec: 07/10/25 09:05 SP [id number]) Out-Patient Physical Therapy Visit Information Visit Information Visit Type Treatment Note Visit Note SPTA Dodie observed tx with permission of pt while HOT METAL CRANE OPERATOR Jasmin provided tx. Visit Start Time 08:17 Visit Stop Time 09:04 Visit Number 9 Number of HOT METAL CRANE OPERATOR Visits 2 Progress Note Due 07/15/25 Evaluation Information Evaluation Date 06/15/25 OP-PT Subjective Patient Comments Patient Comments Pt arrived with 4WW and feels that walker is too low. Still difficult sleeping with pn on side lying. Pillows btwn knees not helping enough. All steristrips removed from incision, pt to ask staple to be removed at MD visit on . Pt finds FWW use sometimes at home is helpful otherwise walks in home w/o AD, may use some furniture support. Palpation Assessment Location R knee Palpation Details R mid patella: 44.2 cm R 5 cm above mid patella: 44.5 cm R 5 cm below mid patella: 39.8 cm Knee Goniometric Range of Motion Knee Right Knee ROM WFL No Patient Position Supine Flexion Active ( 103 degrees) Extension Active ( 5 degrees) Comments heelslide AROM measurement, pt states measuring in morning today may have less ROM vs in afternoon due to lack of walking yet today. Therapeutic Exercises Sitting Exercises HS curl Sitting Exercise verbal review, discussed after stretch can perform quad Name set too few reps Clamshell Sitting Exercise DC 07/10/25: due to c/o pain at home use to lateral R Name leg Standing Exercises Stepping Standing Exercise FW, BW, Lat Name Side bilateral Reps/Minutes 3 x 15' Comments working on ROM, vc for glut engagement during mid- stance on R. Toe raises Standing Exercise Toe raises Name Side bilateral Equipment Used back to rail for balance support Reps/Minutes 2 x 10 Comments vc to stay in pn free range, pt tired at rep 8 on second set more R than L Heel raises Standing Exercise Heel raises Name Side bilateral Equipment Used 1 UE then no UE support, rail Reps/Minutes 2 x 10 Comments vc to raise head and look fwd aliza stepping ROM Standing Exercise huedle stepping for ROM Name Side bilateral Equipment Used hurdles, bar as needed for balance Reps/Minutes 2 x 15' Comments vc for gait form, LE alignment Gait Training Gait Activity Trek poles Comments next visit 4WW Description ambulate Device Used 4WW Surface level Distance/Duration 50' Comments Raised height of 4WW by one setting and checked with walking 50', pt reports new level worked well and allowed her to stand taller when walking. Manual Therapy Treatment Consent Patient gave verbal Yes consent for manual treatment Soft Tissue Mobilization R knee scar mobility Body Location supported superior/inferior/med/lat Intensity/Depth Superficial Comments long axis knee extension towel under knee R knee Body Location distal medial HS, adductors, plantaris, gastroc & soleus Mobilization Type Rolling,Sustained Pressure,Other Intensity/Depth Moderate Body Position Hooklying Comments gentle STMs MF glidesand MWM over plantaris, distal DF ankle AROM hooklying R knee bent Joint Mobilizations R patella mobility Joint R Direction med/lat/sup/inf Grade II Body Position Supine R knee Joint R knee A<->P Grade II Body Position hookying Taping Ktaping Body Location R knee Treatment Focus edema reduction Comments fanned strips medial and lateral R knee joint, 25% tension. Self-Care/Home Management Treatment Education Patient Education Body Mechanics,Home Exercise Program,Joint Protection, Pain Management,Safety Other Education Pt ed for posture, R knee AROM during aliza stepping, decreased circumduction Physical Therapy Assessment Goals Two Impairment Post-op weakness in right knee, MMT of both flexion and extension 3-/5 User Experience Lead Goal (LTG) Pt to improve strength in right knee flexion and extension to 4/5 or greater in order to help normalize gait pattern. LTG Duration 09/13/25 One Impairment Limited right knee flexion, AROM at 70? User Experience Lead Goal (LTG) Pt to improve right knee flexion AROM to 120? in order to improve ability to ascend/descend stairs 07/06/25: AROM 102, PROM 105 deg w/ breathwork LTG Duration 09/13/25 Assessment Summary Assessment Pt improved posture with increased 4WW height during gait end tx, demonstrated decreased R knee flexion and extension AROM this tx, with pt reported usually more ROM later in day, today was earlier appt than ususal and did get to HEP before tx. She tolerated added standing HR and DF forefoot raises to HEP, declined HO. Physical Therapy Plan Frequency and Duration Frequency of 2-3x/week Treatment Plan of Care Start 06/15/25 Date Plan of Care End 09/13/25 Date Therapeutic Interventions Therapeutic Balance Training,Gait Training,Home Exercise Program, Interventions Joint Mobilizations,Manual Therapy,Neuromuscular Re- education,Patient/Caregiver Education,Self-Care/Home Management,Soft Tissue Mobilization,Therapeutic Activities,Therapeutic Exercises Modalities Cold Pack/Ice Massage,Electric Stimulation,Hot Packs, Ultrasound Next Visit Focus/Plan Next Note Type Treatment Note Next Visit Plan Next: continue TKE and active HS elongation to support decreased distal HS and plantaris over tension and potentially resisting R knee extension, trial HS knee AROM. R knee AROM- remeasure, assess Ktape for swelling and check circumference measurement, retry upright bike vs stepper if tolerated good response. Retry [place]an Stim to R quad during QS then trial SAQ for progression strength TKE for WB gait if needed. POC: ROM, gait training, STM/joint mobs, strengthening
--- NOTE | 2025-07-14 16:05 | PT.OTN ---
Current Diagnoses Presence of right artificial knee joint (07/14/25) Physical Therapy Treatment Note PT OP: Lower Back/Lower Extremity Start: 06/15/25 11:37 Freq: Status: Active Protocol: Document 07/14/25 08:17 PD (Rec: 07/14/25 09:49 PD [id number]) Out-Patient Physical Therapy Visit Information Visit Information Visit Type Treatment Note Visit Note PETRA Stoll assisted with tx with permission of pt and direct supervision of JOSIE Castellanos. Visit Start Time 08:17 Visit Stop Time 08:47 Visit Number 10 Number of DEVELOPMENTAL MATHEMATICS INSTRUCTOR Visits 3 Progress Note Due 07/15/25 OP-PT Subjective Patient Comments Patient Comments Pt arrives with trek poles, reports pn -12/05 pre-tx. Pt saw surgeon yesterday, last staple out of incision. Surgeon instructed pt that she needs more knee flexion and to work on this during PT tx. Knee Goniometric Range of Motion Knee Right Knee ROM WFL No Patient Position Supine Flexion Active ( 111 degrees) Flexion Passive ( 114 degrees) Extension Active ( 5 degrees) Extension Passive ( 5 degrees) Comments Heel slide AROM, AROM flexion increased by 8 degrees since 07/10/25, AROM extension remains the same. Gym Equipment Shuttle Recovery Bilateral Squats Details Bilateral squats Resistance 25#, ball btwn knees Shuttle Recovery Stable Platform Reps/Time 2 x 10, R AAROM 103 degrees at max flexion. Therapeutic Exercises Standing Exercises Knee flexion Standing Exercise AAROM on step Name Side right Equipment Used second step on 6 stairs, with rail support Reps/Minutes 2 x 30 Comments Pt able to complete at home in HEP, best ex for AAROM flexion, AAROM 113. Manual Therapy Treatment Consent Patient gave verbal Yes consent for manual treatment Soft Tissue Mobilization R knee Body Location distal medial HS, adductors, plantaris, gastroc & soleus Mobilization Type Rolling,Sustained Pressure,Other Intensity/Depth Moderate Body Position Prone Comments gentle STMs MF glides and MWM over plantaris, distal DF ankle AROM hooklying R knee bent Joint Mobilizations R knee Joint R knee A<->P, prone anterior translation with strap Grade II Body Position Hooklying Comments DEVELOPMENTAL MATHEMATICS INSTRUCTOR provided Manual Techniques Hold/Relax Stretch Type Hold/Relax Quad Stretch and Knee Flexion Body Location R Quad Body Position Prone Reps/Duration 2 rounds of 3 - 6 second holds Comments Belt trialed on second round after joint mobilization, experienced pain at end of range, achieved more range after second mobilization, reached 114 degrees flexion. Physical Therapy Assessment Goals Two Impairment Post-op weakness in right knee, MMT of both flexion and extension 3-/5 Retail Advertising Executive Goal (LTG) Pt to improve strength in right knee flexion and extension to 4/5 or greater in order to help normalize gait pattern. LTG Duration 09/13/25 One Impairment Limited right knee flexion, AROM at 70? Half-Way Goal (LTG) Pt to improve right knee flexion AROM to 120? in order to improve ability to ascend/descend stairs 07/06/25: AROM 102, PROM 105 deg w/ breathwork : AROM 111, PROM 114 LTG Duration 09/13/25 Assessment Summary Assessment Pt improved R knee flexion AROM by 8 degrees since 07/10 and PROM by 9 degrees since 07/06. Quads and knee pn limiting in flexion, gentle jt mobs improved pn when pt . completed AAROM on standing step flexion stretch, instructed to complete with HEP. Physical Therapy Plan Frequency and Duration Frequency of 2-3x/week Treatment Plan of Care Start 06/15/25 Date Plan of Care End 09/13/25 Date Next Visit Focus/Plan Next Note Type Progress Note Next Visit Plan Next: Continue to progress PROM, AAROM, and AROM for knee flexion and extension, strengthening of Quads, Gluts, HS. Next visit progress note due.
--- NOTE | 2025-07-18 15:48 | PT.OTN ---
Current Diagnoses Presence of right artificial knee joint (07/18/25) Physical Therapy Treatment Note PT OP: Lower Back/Lower Extremity Start: 06/15/25 11:37 Freq: Status: Active Protocol: Document 07/18/25 14:30 PD (Rec: 07/18/25 15:29 PD [id number]) Out-Patient Physical Therapy Visit Information Visit Information Visit Type Treatment Note Visit Note PETRA Stoll led tx session with permission of pt and direct supervision of JOSIE Castellanos. Visit Start Time 14:30 Visit Stop Time 15:22 Visit Number 11 Number of SUSTAINABILITY PROJECT COORDINATOR Visits 4 Progress Note Due 07/15/25 OP-PT Subjective Patient Comments Patient Comments Pt reports that STM and stretching from last session was very helpful. Minimal pn reported on arrival this afternoon. Pt is using upright exercise bike at home but it about 2 away from being able to complete a full revolution. Knee Goniometric Range of Motion Knee Right Knee ROM WFL No Patient Position Supine Flexion Active ( 109 degrees) Extension Active ( 7 degrees) Extension Passive ( 2 degrees) Comments Pre tx heel slide AROM in supine: 109, Post tx: R knee flexion AROM 114 deg; extension 7 AROM, 2 PROM at end tx after ther ex. Knee Strength Knee Manual Muscle Testing Right Flexion (S2) 4 Good Extension (L3) 4+ Good+ Comments Seated Cardio Equipment Recumbent Stepper (Sci-Fit) Duration (Minutes) 5 Resistance 1.3 Seat Position 12 Other B UE LE cues for LLE alignment Recumbent Bicycle Duration (Minutes) 4 Resistance none Seat Position 6 Other Pt able to make full rotations backwards starting slow, 2' bw, 2' fw Bicycle (Upright) Duration (Minutes) 2 Resistance 0 Seat Position 7 Other full revolutions backwards Gym Equipment Shuttle Recovery Unilateral squat Details Trial unilateral Resistance 12# Reps/Time Attempted 2, unable to complete further 07/18/25 Bilateral Squats Details Bilateral squats Resistance 25#, ball btwn knees (unable 37) Shuttle Recovery Stable Platform Reps/Time 2 x 20, Set to exceed 90 degrees knee flexion, pt unable to single leg. Therapeutic Exercises Sitting Exercises Sit to Stand Sitting Exercise Sit to Stands from 20.5 surface without UE Name Side bilateral Resistance AROM Reps/Minutes x 5 Comments Pt experienced R knee pn 4/10 post ex. Cues terminal knee ext standing. Seated Knee Flexion Sitting Exercise Post op exercise review Name Comments Too easy Manual Therapy Treatment Manual Techniques ROM, MMT Type PROM, MMT for R knee Comments See under ROM, MMT sections for results Physical Therapy Assessment Goals Two Impairment Post-op weakness in right knee, MMT of both flexion and extension 3-/5 Watch Commander Goal (LTG) Pt to improve strength in right knee flexion and extension to 4/5 or greater in order to help normalize gait pattern. 07/18/25: R knee flexion 4/5, R knee extension 4+/5, pt seated. LTG Duration 09/13/25, Goal met 07/18/25 One Impairment Limited right knee flexion, AROM at 70? Halfway Goal (LTG) Pt to improve right knee flexion AROM to 120? in order to improve ability to ascend/descend stairs 07/06/25: AROM 102, PROM 105 deg w/ breathwork : AROM 111, PROM 114 07/18/25: AROM 114 LTG Duration 09/13/25 Assessment Summary Assessment Pt increased knee flexion AROM 5 degrees to 114 deg pre to post tx. PROM for extension not measured pre tx but increased PROM extension by 3 to deg since 07/14 session post tx. Pt able to complete 5 STS at 20.5 inch seat height without use of arms but experiences R knee pain at 4/10 after but please able to perform. Pt still unable to tolerate unilateral Shuttle Recovery squats. Pt was able to progress ROM use of various bikes, able to complete full revolutions fw and bw on recumbent bike, will try to complete full revolutions on home exercise bike before next session. Pt progressing toward goals but will continue to benefit from skilled therapy to further improve ROM, strength, and functional mobility in R knee. Physical Therapy Plan Frequency and Duration Frequency of 2-3x/week Treatment Plan of Care Start 06/15/25 Date Plan of Care End 09/13/25 Date Therapeutic Interventions Therapeutic Balance Training,Gait Training,Home Exercise Program, Interventions Joint Mobilizations,Manual Therapy,Neuromuscular Re- education,Patient/Caregiver Education,Self-Care/Home Management,Soft Tissue Mobilization,Therapeutic Activities,Therapeutic Exercises Modalities Cold Pack/Ice Massage,Electric Stimulation,Hot Packs, Ultrasound Next Visit Focus/Plan Next Note Type Progress Note Next Visit Plan PT will complete PN today. Next: Continue to progress PROM, AAROM, and AROM for knee flexion and extension, strengthening of Quads, Gluts, HS. Pt will be leaving Aug 13 [place] .
--- NOTE | 2025-07-18 17:54 | PT.OPPN ---
Current Diagnoses Presence of right artificial knee joint (07/18/25) Physical Therapy Progress Note PT OP: Lower Back/Lower Extremity Start: 06/15/25 11:37 Freq: Status: Active Protocol: Document 07/18/25 17:53 DCW (Rec: 07/18/25 17:54 DCW [id number]) Out-Patient Physical Therapy Visit Information Visit Information Visit Type Progress Note Physical Therapy Assessment Impairments Impairments Activity Tolerance,Balance,Edema,Functional Activities, Functional Mobility,Gait,Pain,ROM,Soft Tissue Mobility, Strength Goals Two Impairment Post-op weakness in right knee, MMT of both flexion and extension 3-/5 Detention Goal (LTG) Pt to improve strength in right knee flexion and extension to 4/5 or greater in order to help normalize gait pattern. 07/18/25: R knee flexion 4/5, R knee extension 4+/5, pt seated. LTG Duration 09/13/25, Goal met 07/18/25 One Impairment Limited right knee flexion, AROM at 70? Detention Goal (LTG) Pt to improve right knee flexion AROM to 120? in order to improve ability to ascend/descend stairs 07/06/25: AROM 102, PROM 105 deg w/ breathwork 9:: AROM 111, PROM 114 07/18/25: AROM 114 LTG Duration 09/13/25 Assessment Summary Assessment Pt progressing well toward goals, ROM significantly improving over last 2-3 visits. Pt will likely benefit from continued therapeutic intervention focusing on gait, strength, ROM, and functional mobility. Physical Therapy Plan Frequency and Duration Frequency of 2-3x/week Treatment Plan of Care Start 06/15/25 Date Plan of Care End 09/13/25 Date Therapeutic Interventions Therapeutic Balance Training,Gait Training,Home Exercise Program, Interventions Joint Mobilizations,Manual Therapy,Neuromuscular Re- education,Patient/Caregiver Education,Self-Care/Home Management,Soft Tissue Mobilization,Therapeutic Activities,Therapeutic Exercises Modalities Cold Pack/Ice Massage,Electric Stimulation,Hot Packs, Ultrasound Next Visit Focus/Plan Next Note Type Treatment Note Next Visit Plan Next: Continue to progress PROM, AAROM, and AROM for knee flexion and extension, strengthening of Quads, Gluts, HS. Pt will be leaving Aug 13 [place] .
--- NOTE | 2025-07-20 15:21 | PT.OTN ---
Current Diagnoses Presence of right artificial knee joint (07/20/25) Physical Therapy Treatment Note PT OP: Lower Back/Lower Extremity Start: 06/15/25 11:37 Freq: Status: Active Protocol: Document 07/20/25 14:35 AB (Rec: 07/20/25 15:21 AB [id number]) Out-Patient Physical Therapy Visit Information Visit Information Visit Type Treatment Note Visit Start Time 14:35 Visit Stop Time 15:16 Visit Number 12 Number of GLASS PULVERIZER EQUIPMENT OPERATOR Visits 1 Progress Note Due 08/14/25 OP-PT Subjective Patient Comments Patient Comments Lacking 3 deg ext to 108 deg flexion AROM R knee. Patient reports she thinks she overdid it last session, Fady reports the knee is swollen and painful had to take Oxy yesterday and Ibuprofen today. Patient rates pain 4/10 R knee start of session initiates sit to stand with LE extended. Gym Equipment Shuttle Recovery Bilateral Squats Details Bilateral squats Resistance 25#, ball btwn knees Shuttle Recovery Stable Platform Reps/Time x 10 to 70 deg knee flexion Therapeutic Exercises Supine Exercises knee flexion on wall Reps/Minutes 5 min Comments assist for LE 's on wall verbal cues to lower each min HS stretch Supine Exercise Name hamstring stretch from hooklying Side bilateral Reps/Minutes 60 sec each LE X 2 Comments verbal cues Heel Slides Supine Exercise Name 1. on ball 2. AROM knee flexion Side bilateral Reps/Minutes 1. 3 min 2. X10 Comments due to inc swelling Manual Therapy Treatment Soft Tissue Mobilization R knee Body Location for R knee swelling, HS, quad med knee Mobilization Type Cross-Friction,Rolling,Sustained Pressure,Other Intensity/Depth Moderate Body Position Hooklying Physical Therapy Assessment Goals Two Impairment Post-op weakness in right knee, MMT of both flexion and extension 3-/5 Nursing Home Goal (LTG) Pt to improve strength in right knee flexion and extension to 4/5 or greater in order to help normalize gait pattern. 07/18/25: R knee flexion 4/5, R knee extension 4+/5, pt seated. LTG Duration 09/13/25, Goal met 07/18/25 One Impairment Limited right knee flexion, AROM at 70? Nursing Home Goal (LTG) Pt to improve right knee flexion AROM to 120? in order to improve ability to ascend/descend stairs 07/06/25: AROM 102, PROM 105 deg w/ breathwork : AROM 111, PROM 114 07/18/25: AROM 114 LTG Duration 09/13/25 Assessment Summary Assessment AROM R knee flexion 111 deg post manual and exercise. Fady rates R knee pain 2-3/10 end of session ambulating out of session with walking sticks. Physical Therapy Plan Frequency and Duration Frequency of 2-3x/week Treatment Plan of Care Start 06/15/25 Date Plan of Care End 09/13/25 Date Next Visit Focus/Plan Next Note Type Treatment Note Next Visit Plan Next: Continue to progress PROM, AAROM, and AROM for knee flexion and extension, strengthening of Quads, Gluts, HS. Pt will be leaving Aug 13 for 5 months [facility] .
--- NOTE | 2025-07-25 15:18 | PT.OTN ---
Current Diagnoses Presence of right artificial knee joint (07/25/25) Physical Therapy Treatment Note PT OP: Lower Back/Lower Extremity Start: 06/15/25 11:37 Freq: Status: Active Protocol: Document 07/25/25 14:30 DCW (Rec: 07/25/25 15:18 DCW [id number]) Out-Patient Physical Therapy Visit Information Visit Information Visit Type Treatment Note Visit Start Time 14:30 Visit Stop Time 15:15 Visit Number 13 Number of BRICK WHEELER Visits 0 Progress Note Due 08/14/25 Evaluation Information Evaluation Date 06/15/25 OP-PT Subjective Patient Comments Patient Comments Concerned about leaving for [place] the middle of next month, so will be stopping PT here, but now hoping to continue with PT when she gets to [place]. Therapeutic Exercises Standing Exercises Hamstring Curls Standing Exercise Hamstring curls Name Side bilateral Resistance 4# Heel raises Standing Exercise Heel raises Name Side bilateral Equipment Used 1 UE then no UE support, rail Reps/Minutes 2 x 10 Comments vc to raise head and look fwd Other Exercises Sit to Stand Other Exercise Name StS Comments VCs for technique, limit UE assistance Manual Therapy Treatment Soft Tissue Mobilization R knee scar mobility Body Location R knee surgical incision Body Position Semireclined Neuro Re-Education Treatment Balance Activities Lunge Details Mini-lunge onto triple stack of AirEx Equipment // bars Self-Care/Home Management Treatment Education Other Education Review of current HEP, discussed importance of improving ROM as well as increasing focus on strengthening by adding sit<-stands, hamstring curls, and heel raises. Physical Therapy Assessment Impairments Impairments Activity Tolerance,Balance,Edema,Functional Activities, Functional Mobility,Gait,Pain,ROM,Soft Tissue Mobility, Strength Goals Two Impairment Post-op weakness in right knee, MMT of both flexion and extension 3-/5 Cad Drafter Goal (LTG) Pt to improve strength in right knee flexion and extension to 4/5 or greater in order to help normalize gait pattern. 07/18/25: R knee flexion 4/5, R knee extension 4+/5, pt seated. LTG Duration 09/13/25, Goal met 07/18/25 One Impairment Limited right knee flexion, AROM at 70? Penitentiary Goal (LTG) Pt to improve right knee flexion AROM to 120? in order to improve ability to ascend/descend stairs 07/06/25: AROM 102, PROM 105 deg w/ breathwork 9:: AROM 111, PROM 114 07/18/25: AROM 114 LTG Duration 09/13/25 Assessment Summary Assessment Pt continues to slowly progress s/p TKA, beginning to focus more on strengthening vs ROM, but does still need increased flexion. Continue to work on gait, balance, strength, ROM, and functional mobility. Physical Therapy Plan Frequency and Duration Frequency of 2-3x/week Treatment Plan of Care Start 06/15/25 Date Plan of Care End 09/13/25 Date Therapeutic Interventions Therapeutic Balance Training,Gait Training,Home Exercise Program, Interventions Joint Mobilizations,Manual Therapy,Neuromuscular Re- education,Patient/Caregiver Education,Self-Care/Home Management,Soft Tissue Mobilization,Therapeutic Activities,Therapeutic Exercises Modalities Cold Pack/Ice Massage,Electric Stimulation,Hot Packs, Ultrasound Next Visit Focus/Plan Next Note Type Treatment Note Next Visit Plan Next: Continue to progress PROM, AAROM, and AROM for knee flexion and extension, strengthening of Quads, Gluts, HS. Pt will be leaving Aug 13 for 5 months [facility] .
--- NOTE | 2025-07-28 14:58 | PT.OTN ---
Current Diagnoses Presence of right artificial knee joint (07/28/25) Physical Therapy Treatment Note PT OP: Lower Back/Lower Extremity Start: 06/15/25 11:37 Freq: Status: Active Protocol: Document 07/28/25 13:01 AB (Rec: 07/28/25 14:48 AB [id number]) Out-Patient Physical Therapy Visit Information Visit Information Visit Type Treatment Note Visit Note [email or web address] Access Code: [email or web address] Visit Start Time 13:03 Visit Stop Time 13:49 Visit Number 14 Number of GAS SINGER Visits 1 Progress Note Due 08/14/25 OP-PT Subjective Patient Comments Patient Comments AROM R knee lacking 5 deg extension ( L lacking 12 deg extension) to 115 deg flexion start of session. Patient reports she is now able to reverse revolutions on exercise bike. Therapeutic Exercises Supine Exercises HS curl Side bilateral Equipment Used 45cm blue physioball Comments 2-3 min HS stretch Supine Exercise Name hamstring stretch from hooklying Side bilateral Reps/Minutes 60 sec each LE X 2 Comments verbal cues QS Side right Reps/Minutes 3 reps Heel Slides Side right Reps/Minutes X 10 X 2 Comments VC for full knee flexion repeated Sitting Exercises seated hip abd with band Sitting Exercise HEP Name Side bilateral Resistance level one band Reps/Minutes one min X 2 Comments verbal cues Standing Exercises squat Standing Exercise 1/2 to chair Name Equipment Used initially level 3 and then Level one band X 10 Reps/Minutes X 10 Comments VC for hip hinge and to keep tension on band, VC knees straight when uprigh Other Exercises Sit to Stand Reps/Minutes X 4 without band X 4 with band Comments VC for inc hip hinge LE positioning and to dec velocity Manual Therapy Treatment Consent Patient gave verbal Yes consent for manual treatment Soft Tissue Mobilization R knee Body Location for R knee swelling, HS, quad med knee, scar tissue Mobilization Type Cross-Friction,Rolling,Sustained Pressure,Other Intensity/Depth Moderate Body Position Hooklying Joint Mobilizations R patella mobility Joint R Direction med/lat/sup/inf Grade II Body Position Supine R knee Grade II Body Position Hooklying Taping Ktaping Body Location R knee Skin Inspection WNL Comments I strips peripat med and lat 50% stretch superiorly I strip to improve tracking medially Physical Therapy Assessment Goals Two Impairment Post-op weakness in right knee, MMT of both flexion and extension 3-/5 Skilled Nursing Goal (LTG) Pt to improve strength in right knee flexion and extension to 4/5 or greater in order to help normalize gait pattern. 07/18/25: R knee flexion 4/5, R knee extension 4+/5, pt seated. LTG Duration 09/13/25, Goal met 07/18/25 One Impairment Limited right knee flexion, AROM at 70? Skilled Nursing Goal (LTG) Pt to improve right knee flexion AROM to 120? in order to improve ability to ascend/descend stairs 07/06/25: AROM 102, PROM 105 deg w/ breathwork : AROM 111, PROM 114 07/18/25: AROM 114 LTG Duration 09/13/25 Assessment Summary Assessment Lacking 3 deg extension end of session AROM R knee. Patient able to perform stand to sit with improved hip hinge dec velocity but not yet WNL Physical Therapy Plan Frequency and Duration Frequency of 2-3x/week Treatment Plan of Care Start 06/15/25 Date Plan of Care End 09/13/25 Date Next Visit Focus/Plan Next Visit Plan Next: Continue to progress PROM, AAROM, and AROM for knee flexion and extension, strengthening of Quads, Gluts, HS. [place] .
--- NOTE | 2025-07-31 16:00 | PT.OTN ---
Current Diagnoses Presence of right artificial knee joint (07/31/25) Physical Therapy Treatment Note PT OP: Lower Back/Lower Extremity Start: 06/15/25 11:37 Freq: Status: Active Protocol: Document 07/31/25 14:35 PD (Rec: 07/31/25 15:42 PD [id number]) Out-Patient Physical Therapy Visit Information Visit Information Visit Type Treatment Note Visit Note PETRA Stoll led tx session with direct supervision by JOSIE Castellanos and patient permission. Visit Start Time 14:35 Visit Stop Time 15:22 Visit Number 15 Number of PBX TECHNICIAN Visits 2 Progress Note Due 08/14/25 OP-PT Subjective Patient Comments Patient Comments Pt was very uncomfortable this morning. She takes ibuprofin before bed but then doesn't take any more pain medication until breakfast and so she is very sore for the ship loader. She is now able to do full reverse revolutions on her home exercise bike after she rocks back and forth a few times. She is doing stretching HEPs every day and strengthening every other day to get some recovery time. Gym Equipment Shuttle Recovery Unilateral squat Details Trial unilateral - unable Resistance 12# Reps/Time Attempted, pt unable to lower L leg down. Bilateral Squats Details Bilateral squats Resistance 25#, ball btwn knees Shuttle Recovery Stable Platform Reps/Time 2 x 10 to approximately 85-90 degree knee flexion Therapeutic Exercises Standing Exercises Ankle/knee flexion at wall Standing Exercise Ankle/knee flexion at wall Name Side bilateral Resistance BW Equipment Used wall Reps/Minutes x 10 Comments Cues for positioning, pushing forward into ankle DF/ knee flex, extend fully squat Standing Exercise Squat to oyster picker object off floor Name Side bilateral Resistance BW Equipment Used object on floor Reps/Minutes x 5 Comments cues to deeper squat with hip hinge, wide MIRI, to oyster picker object from floor Heel raises Standing Exercise Heel raises Name Side bilateral Equipment Used 4 step, rail Reps/Minutes 60 hold then x 10 Comments vc for heels down to stretch, hold, then slow up on toes and back down Knee flexion Standing Exercise Push into flexion on 8 step Name Side bilateral Resistance BW Equipment Used 8 and 16 step Reps/Minutes 2 x 5 Comments Cues to step forward into knee flexion on 8 step, reach object on 16 step Manual Therapy Treatment Consent Patient gave verbal Yes consent for manual treatment Soft Tissue Mobilization R knee Body Location for R and L knee swelling, HS, quad med knee, scar tissue, gastroc Mobilization Type Cross-Friction,Rolling,Sustained Pressure Intensity/Depth Moderate Body Position Hooklying Comments STM in hooklying and prone Joint Mobilizations R knee Joint R knee Grade II Body Position Prone Reps/Duration 5 x 10 sec hold Comments anterior, pt prone, towel and belt behind proximal calf . Physical Therapy Assessment Goals Two Impairment Post-op weakness in right knee, MMT of both flexion and extension 3-/5 Reservoir Engineer Goal (LTG) Pt to improve strength in right knee flexion and extension to 4/5 or greater in order to help normalize gait pattern. 07/18/25: R knee flexion 4/5, R knee extension 4+/5, pt seated. LTG Duration 09/13/25, Goal met 07/18/25 One Impairment Limited right knee flexion, AROM at 70? Reservoir Engineer Goal (LTG) Pt to improve right knee flexion AROM to 120? in order to improve ability to ascend/descend stairs 07/06/25: AROM 102, PROM 105 deg w/ breathwork : AROM 111, PROM 114 07/18/25: AROM 114 LTG Duration 09/13/25 Assessment Summary Assessment Pt progressing slowly, reports soreness after tx sessions or HEP if she does too much. Soreness in L and R knees today addressed with STM and R knee mobilization prior to ROM and strengthening exercises for flexion and functional squatting and lifting. Physical Therapy Plan Frequency and Duration Frequency of 2-3x/week Treatment Plan of Care Start 06/15/25 Date Plan of Care End 09/13/25 Date Therapeutic Interventions Therapeutic Balance Training,Gait Training,Home Exercise Program, Interventions Joint Mobilizations,Manual Therapy,Neuromuscular Re- education,Patient/Caregiver Education,Self-Care/Home Management,Soft Tissue Mobilization,Therapeutic Activities,Therapeutic Exercises Modalities Cold Pack/Ice Massage,Electric Stimulation,Hot Packs, Ultrasound Next Visit Focus/Plan Next Visit Plan Next: Continue to progress knee flexion and extension through functional squatting, strengthening, and ROM exercises for quads, gluts, HS and stretching for gastroc/soleus. Pt leaving 08/13 for 9 months.
--- NOTE | 2025-08-02 12:13 | PT.OTN ---
Current Diagnoses Presence of right artificial knee joint (08/02/25) Physical Therapy Treatment Note PT OP: Lower Back/Lower Extremity Start: 06/15/25 11:37 Freq: Status: Active Protocol: Document 08/02/25 11:30 DCW (Rec: 08/02/25 12:13 DCW [id number]) Out-Patient Physical Therapy Visit Information Visit Information Visit Type Treatment Note Visit Start Time 11:30 Visit Stop Time 12:15 Visit Number 16 Number of SUSPECT ARTIST Visits 0 Progress Note Due 08/14/25 Evaluation Information Evaluation Date 06/15/25 OP-PT Subjective Patient Comments Patient Comments Pt reports she had a major accomplishment, was able to get fully around forward on her exercise bike at home Cardio Equipment Recumbent Bicycle Duration (Minutes) 5 Resistance none Seat Position 5 Other Forward rotations Gym Equipment Shuttle Recovery Bilateral Squats Details Bilateral squats Resistance 25#, ball btwn knees Shuttle Recovery Stable Platform Reps/Time 2x10, knee flexion to 113? Therapeutic Ball Knee flexion Exercise Details Knee flexion stretch with overpressure Ball Size/Color Blue 45 cm /c strap Body Position Supine Comments R PROM flexion at 114? Therapeutic Exercises Supine Exercises SAQ Supine Exercise Name SAQ Side right Resistance 4# Reps/Minutes 2x10 Prone Exercises Hamstring curls Prone Exercise Name Prone hamstring curls Side bilateral Resistance 3# Equipment Used 2x10 Standing Exercises Heel raises Standing Exercise Heel raises Name Side bilateral Knee flexion Standing Exercise Push into flexion on 8 step Name Side bilateral Equipment Used 6 and 12 step Reps/Minutes x10 each side Physical Therapy Assessment Impairments Impairments Activity Tolerance,Balance,Edema,Functional Activities, Functional Mobility,Gait,Pain,ROM,Soft Tissue Mobility, Strength Goals Two Impairment Post-op weakness in right knee, MMT of both flexion and extension 3-/5 Usp Goal (LTG) Pt to improve strength in right knee flexion and extension to 4/5 or greater in order to help normalize gait pattern. 07/18/25: R knee flexion 4/5, R knee extension 4+/5, pt seated. LTG Duration 09/13/25, Goal met 07/18/25 One Impairment Limited right knee flexion, AROM at 70? Usp Goal (LTG) Pt to improve right knee flexion AROM to 120? in order to improve ability to ascend/descend stairs 07/06/25: AROM 102, PROM 105 deg w/ breathwork : AROM 111, PROM 114 07/18/25: AROM 114 LTG Duration 09/13/25 Assessment Summary Assessment Pt getting closer to goals, has been around 110?-115? recently, doing better with overall pain levels and gait. Pt will likely be discharging following her next appointment, [place] the [place]. Pt will be continuing therapy at a different clinic during the winter. Physical Therapy Plan Frequency and Duration Frequency of 2-3x/week Treatment Plan of Care Start 06/15/25 Date Plan of Care End 09/13/25 Date Therapeutic Interventions Therapeutic Balance Training,Gait Training,Home Exercise Program, Interventions Joint Mobilizations,Manual Therapy,Neuromuscular Re- education,Patient/Caregiver Education,Self-Care/Home Management,Soft Tissue Mobilization,Therapeutic Activities,Therapeutic Exercises Modalities Cold Pack/Ice Massage,Electric Stimulation,Hot Packs, Ultrasound Next Visit Focus/Plan Next Visit Plan Next: Continue to progress knee flexion and extension through functional squatting, strengthening, and ROM exercises for quads, gluts, HS and stretching for gastroc/soleus. Pt leaving 08/13 for 9 months.
--- NOTE | 2025-08-08 11:37 | PT.OTN ---
Current Diagnoses Presence of right artificial knee joint (08/08/25) Physical Therapy Treatment Note PT OP: Lower Back/Lower Extremity Start: 06/15/25 11:37 Freq: Status: Active Protocol: Document 08/08/25 10:50 AB (Rec: 08/08/25 11:37 AB [id number]) Out-Patient Physical Therapy Visit Information Visit Information Visit Type Treatment Note Visit Note [email or web address] Access Code: [email or web address] Visit Start Time 10:40 Visit Stop Time 11:34 Visit Number 17 Number of TUBE FORMER OPERATOR Visits 1 Progress Note Due 08/14/25 OP-PT Subjective Patient Comments Patient Comments Patient reports she is focusing on straightening the knee and is having more back pain. Patient rates back pain / start of session was 4-5/10 this morning L sided. ( patient reports focus on L LE ROM to match R for extension) Patient reports the SAQ with ankle weights did fewer as only has 5 lb and feels she pulled her knee. AROM R knee lacking 1 deg extension to 102 deg flexion start of session Therapeutic Exercises Supine Exercises Heel Slides Side right Reps/Minutes X 10 Comments VC for full knee flexion repeated Prone Exercises Hamstring curls Prone Exercise Name Prone hamstring curls Side bilateral Equipment Used 1x X 15 Comments monitored for area of discomort Sitting Exercises HS curl Sitting Exercise verbal review, discussed after stretch can perform quad Name set too few reps Standing Exercises single leg lift Standing Exercise with UE support Name Reps/Minutes X 5 X 2 each side Comments Verbal and visual cues Knee flexion Standing Exercise AROM with UE support Name Side bilateral Reps/Minutes X 5 X 2 each LE Comments Verbal and visual cues use Other Exercises glute med isometric Reps/Minutes 20 sec then 40 sec R LE 60 sec L LE Comments verbal and visual cues Sit to Stand Reps/Minutes X 2 X 2 Comments review of hip hinge Manual Therapy Treatment Soft Tissue Mobilization R knee Body Location for R and L knee swelling, HS, quad med knee, scar tissue, gastroc Mobilization Type Cross-Friction,Instrument Assisted,Rolling,Sustained Pressure Intensity/Depth Moderate Body Position Hooklying Comments STM in hooklying and prone cupping supra pat laterally and med and markell pat med with knee flexion Joint Mobilizations R knee Joint R knee Grade III Body Position Hooklying Reps/Duration X 10 X 3 Comments reports less pain post knee with HS and standing knee flexion, but returns post a few repetitions Taping Ktaping Body Location R knee Skin Inspection WNL Comments I strips peripat med and lat 50% stretch superiorly I strip to improve tracking medially Physical Therapy Assessment Goals Two Impairment Post-op weakness in right knee, MMT of both flexion and extension 3-/5 Fpc Goal (LTG) Pt to improve strength in right knee flexion and extension to 4/5 or greater in order to help normalize gait pattern. 07/18/25: R knee flexion 4/5, R knee extension 4+/5, pt seated. LTG Duration 09/13/25, Goal met 07/18/25 One Impairment Limited right knee flexion, AROM at 70? University Counselor Goal (LTG) Pt to improve right knee flexion AROM to 120? in order to improve ability to ascend/descend stairs 07/06/25: AROM 102, PROM 105 deg w/ breathwork : AROM 111, PROM 114 07/18/25: AROM 114 LTG Duration 09/13/25 Assessment Summary Assessment AROM R knee flexion 110 deg post manual and ex. Patient reports back and knee pain impacting functional tasks. Patient reports inc post knee pain with standing knee flexion AROM, dec, but not eliminated post knee jt mob Physical Therapy Plan Frequency and Duration Frequency of 2-3x/week Treatment Plan of Care Start 06/15/25 Date Plan of Care End 09/13/25 Date Therapeutic Interventions Therapeutic Balance Training,Gait Training,Home Exercise Program, Interventions Joint Mobilizations,Manual Therapy,Neuromuscular Re- education,Patient/Caregiver Education,Self-Care/Home Management,Soft Tissue Mobilization,Therapeutic Activities,Therapeutic Exercises Modalities Cold Pack/Ice Massage,Electric Stimulation,Hot Packs, Ultrasound Next Visit Focus/Plan Next Note Type Discharge Summary Next Visit Plan Pt leaving 08/13 for 9 months. Patient reports she has scheduled PT in her new location and will not be back here for PT.
--- NOTE | 2025-09-07 16:54 | PT.OPDS ---
Current Diagnoses Presence of right artificial knee joint (08/08/25) Visit Care Team Role Provider Type Conner Whitaker MD Family Provider Physician Primary Care Provider Specialty: Family Practice Address: [address], [facility] [place] [address], [place], [address] Email: [email or web address] Freddie Woody MD Attending Provider Non-Staff Referring Provider Specialty: Orthopedics Orthopedic Surgery Address: [address] [place] [address], [id number] Email: Visit Number Visit Number 17 Discharge Summary PT OP: Lower Back/Lower Extremity Start: 06/15/25 11:37 Freq: Status: Active Protocol: Document 09/07/25 16:52 DCW (Rec: 09/07/25 16:54 DCW [id number]) Out-Patient Physical Therapy Visit Information Visit Information Visit Type Discharge Summary Physical Therapy Assessment Impairments Impairments Activity Tolerance,Balance,Edema,Functional Activities, Functional Mobility,Gait,Pain,ROM,Soft Tissue Mobility, Strength Goals Two Impairment Post-op weakness in right knee, MMT of both flexion and extension 3-/5 Group Home Goal (LTG) Pt to improve strength in right knee flexion and extension to 4/5 or greater in order to help normalize gait pattern. 07/18/25: R knee flexion 4/5, R knee extension 4+/5, pt seated. LTG Duration 09/13/25, Goal met 07/18/25 One Impairment Limited right knee flexion, AROM at 70? Slab Lifting Supervisor Goal (LTG) Pt to improve right knee flexion AROM to 120? in order to improve ability to ascend/descend stairs 07/06/25: AROM 102, PROM 105 deg w/ breathwork : AROM 111, PROM 114 07/18/25: AROM 114 LTG Duration 09/13/25 Assessment Summary Assessment Pt will be out of the state for the next nine months, no longer attending skilled therapy. Physical Therapy Plan Discharge Physical Therapy Discharge Reasons No Longer Attending PT Next Visit Focus/Plan Next Note Type Discharge Summary
== END 2025-09-11 10:45 | disposition home or self-care (01) ==
LOC: PHYS 10:45
PROVIDERS: Family Provider Family Medicine; PCP Family Medicine; Referring Provider Orthopaedic Surgery; Visit Provider Orthopaedic Surgery
DX: Z96.651 Presence of right artificial knee joint (principal)
CPT/HCPCS: 97110; 97112; 97116; 97140; 97162; 97535